=== PATIENT | male | born 1955 | race Caucasian/White ===

== ENCOUNTER 2017-10-17 10:53 | Emergency (ER) | payer BC, OTHER ==
[~2017-10-17] VITALS: Ht 175.3 cm; Wt 132.9 kg
[2017-10-17 10:55] VITALS: TEMP 36.8; Ht 175.3 cm; Wt 132.9 kg
[2017-10-17] MEDS ORDERED: RXC/5 PO (11:37)
[2017-10-17] MEDS ORDERED: TAMS0.4C38 PO (11:37)
[2017-10-17] MEDS ORDERED: GLUC1CAP35 PO (11:37)
[2017-10-17] MEDS ORDERED: FINA5TAB PO (11:37)
[2017-10-17] MEDS ORDERED: GLC/500 PO (11:37)
[2017-10-17] MEDS ORDERED: ONDA4TAB46 PO (11:37)
[2017-10-17] MEDS ORDERED: ASPI325T45 PO (11:37)
[2017-10-17] MEDS ORDERED: MoRPHine SULFATE 10 MG/ML CARP/VIAL IV STA ×2 (11:44→14:30)
[2017-10-17] MEDS ORDERED: KETOROLAC TROMETHAMINE 30 MG/ML VIAL IV STA (11:44)
[2017-10-17] MEDS ORDERED: ONDANSETRON INJ 2 MG/ML 2 ML VIAL IV STA (11:44)
[2017-10-17 11:55] LABS: BASO % 0.1 %; BASO ABS # 0.01 K/uL (0-0.2); COMPLETE YES; EOS % 0.8 %; HEMATOCRIT 43.9 % (42-52); IG% 0.4 %; LYMPH % 10.9 %; LYMPH ABS # 1.06 K/uL (1.2-3.4); MEAN CELL VOLUME 95.6 fL (80-100); MEAN CORPUSCULAR HEMOGLOBIN 32.2 pg (25-34); MEAN CORPUSCULAR HGB CONC 33.7 g/dl (32-36); MEAN PLATELET VOLUME 10.4 fL (7.4-10.4); MONO % 11.8 %; PLATELET COUNT 156 K/uL (130-400); RED BLOOD COUNT 4.59 M/uL (4.7-6.1)
[2017-10-17 12:02] LABS: BUN/CREATININE RATIO 12.7 (10-20); CALCIUM 8.3 mg/dl (8.5-10.1); CREATININE 1.95 mg/dl (0.60-1.40); POTASSIUM 4.3 mmol/L (3.5-5.1)
--- NOTE | 2017-10-17 12:44 | DIAGNOSTIC IMAGING REPORT ---
CT OF THE ABDOMEN AND PELVIS WITHOUT CONTRAST, STONE PROTOCOL CLINICAL HISTORY: Bilateral kidney stones. Nausea and vomiting. COMPARISON STUDY: None. TECHNIQUE: Helical axial images of the abdomen and pelvis were obtained without IV or oral contrast according to renal stone protocol. A dose lowering technique was utilized adhering to the principles of ALARA. FINDINGS: Visualized portions of the lower chest demonstrate trace bilateral pleural effusions. There are associated pleural calcifications. The findings may be chronic. A 7 mm x 6 mm left ureteropelvic junction calculus results in moderate left hydronephrosis. No additional ureteral calculi are identified. There are multiple bilateral renal calculi, including a 1 cm calculus within the lower pole of the left kidney. Calcification along the medial inferior cortex of the right kidney is noted. Evaluation of the remainder of the abdomen and pelvis is suboptimal on this unenhanced exam. There is no biliary ductal dilatation status post cholecystectomy. Unenhanced images of the spleen, adrenal glands and pancreas are normal. There is no evidence for a bowel obstruction. Prostate is moderately enlarged. No lymphadenopathy is present. There is mild left perinephric infiltration. No suspicious osseous lesions are present. There is a probable enchondroma within the intertrochanteric portion of the left femur. IMPRESSION: 1. 7 mm x 6 mm left ureteropelvic junction calculus which results in moderate left hydronephrosis. 2. Bilateral nephrolithiasis. 3. Moderate enlargement of the prostate. Electronically signed by: Vikas Hussein M.D. 10/17/2017 12:42 PM Dictated Date/Time: 10/17/2017 12:33 PM
[2017-10-17 13:51] LABS: URINE APPEARANCE CLEAR (CLEAR); URINE BILIRUBIN NEG (NEG); URINE COLOR YELLOW; URINE EPITHELIAL CELL AUTO 0-5 /lpf (0-5); URINE NITRITE NEG (NEG); URINE SPECIFIC GRAVITY 1.016 (1.000-1.030); UROBILINOGEN NEG (NEG); ZZUR CULT IF INDIC CLEAN CATCH NO
[2017-10-17 13:54] LABS: MANUAL MICROSCOPIC REQUIRED? NO; REVIEW REQ? NO
[2017-10-17] MEDS ORDERED: TRAM-453 PO (14:34)
[2017-10-17] MEDS ORDERED: OXYC1TAB3 PO (14:34)
--- NOTE | 2017-10-17 14:36 | EMERGENCY ROOM VISIT NOTE ---
History Report prepared by [place]: Ady Patten Under the Supervision of: Dr. Mike Oh M.D. First contact with patient: 11:15 Chief Complaint: KIDNEY STONE Stated Complaint: KIDNEY STONE History of Present Illness The patient is a 62 year old white male with a past medical history of enlarged prostate, diabetes who presents to the ED with a cc of constant bilateral flank pain beginning this week. Pain radiates to abdomen, groin and testicles. Positive nausea, vomiting. Negative fevers, chills. He was seen in the [facility] this week and was was negative. He was seen a second time in [facility] for his symptoms, and had another CT which showed bilateral kidney stones. EMR reviewed. Patient's CT Abdomen & Pelvis showed a 6 mm left UPJ stone with mild hydronephrosis. Source of History: patient Onset: This week Position: other (bilateral flank) Timing: constant Associated Symptoms: + nausea, + vomiting, + abdominal pain, No fevers, No chills Note: Additional symptoms: pain radiating into groin and testicles. Review of Systems See HPI for pertinent positives and negatives. A total of ten systems were reviewed and were otherwise negative. Past Medical & Surgical Medical Problems: (1) Diabetes (2) Enlarged prostate Family History No pertinent family history stated. Social History Smoking Status: Former Smoker Marital Status: Current/Historical Medications Scheduled Aspirin (Aspirin), 325 MG PO DAILY Finasteride (Proscar), 5 MG PO DAILY Dgfjtwumwzp-Bmmuukrpfhj-Ifx C- (Glucosamine Chondroitin), 1 CAP PO DAILY Metformin Hcl (Glucophage), 500 MG PO BID Tamsulosin Hcl (Flomax), 0.8 MG PO DAILY Tramadol Hcl (Ultram), 50 MG PO Q8H Scheduled PRN Ondansetron Hcl (Zofran), 4 MG PO Q4 PRN for Nausea Oxycodone HCl (Oxycodone HCl), 5 MG PO Q6 PRN for Pain Oxycodone Immediate Rel Tab (Roxicodone Ir), 5 MG PO Q6H PRN for Pain Allergies Coded Allergies: No Known Allergies (Unverified , 10/17/17) Physical Exam Vital Signs Date Time Temp Pulse Resp B/P (MAP) Pulse Ox O2 Delivery O2 Flow Rate FiO2 10/17/17 15:22 58 16 155/88 97 10/17/17 13:22 54 20 132/85 94 Room Air 11/24/17 10:55 36.8 72 16 191/85 96 Room Air Physical Exam GENERAL: Awake, alert, well-appearing, NAD HENT: Normocephalic, atraumatic. EYES: Normal conjunctiva. Sclera non-icteric. NECK: Supple. No nuchal rigidity. FROM. RESPIRATORY: CTAB, no rhonchi, wheezing, crackles CARDIAC: RRR, no MRG ABDOMEN: Obese, soft, ND, BS+. Left CVA TTP. : descended testes, no penile/testicular pain, no scrotal swelling MSK: No chest wall TTP, no LE edema NEURO: GCS 15, CN 2-12 intact, moves all 4s on command SKIN: No rash or jaundice noted. Medical Decision & Procedures ER Provider Diagnostic Interpretation: Radiology results as stated below per my review and radiologist interpretation: CT OF THE ABDOMEN AND PELVIS WITHOUT CONTRAST, STONE PROTOCOL FINDINGS: Visualized portions of the lower chest demonstrate trace bilateral pleural effusions. There are associated pleural calcifications. The findings may be chronic. A 7 mm x 6 mm left ureteropelvic junction calculus results in moderate left hydronephrosis. No additional ureteral calculi are identified. There are multiple bilateral renal calculi, including a 1 cm calculus within the lower pole of the left kidney. Calcification along the medial inferior cortex of the right kidney is noted. Evaluation of the remainder of the abdomen and pelvis is suboptimal on this unenhanced exam. There is no biliary ductal dilatation status post cholecystectomy. Unenhanced images of the spleen, adrenal glands and pancreas are normal. There is no evidence for a bowel obstruction. Prostate is moderately enlarged. No lymphadenopathy is present. There is mild left perinephric infiltration. No suspicious osseous lesions are present. There is a probable enchondroma within the intertrochanteric portion of the left femur. IMPRESSION: 1. 7 mm x 6 mm left ureteropelvic junction calculus which results in moderate left hydronephrosis. 2. Bilateral nephrolithiasis. 3. Moderate enlargement of the prostate. Electronically signed by: Vikas Hussein M.D. 10/17/2017 12:42 PM Laboratory Results 10/17/17 11:23 Red Blood Count 4.59, Mean Corpuscular Volume 95.6, Mean Corpuscular Hemoglobin 32.2, Mean Corpuscular Hemoglobin Concent 33.7, Mean Platelet Volume 10.4, Neutrophils (%) (Auto) 76.0, Lymphocytes (%) (Auto) 10.9, Monocytes (%) (Auto) 11.8, Eosinophils (%) (Auto) 0.8, Basophils (%) (Auto) 0.1, Neutrophils # (Auto ) 7.37, Lymphocytes # (Auto) 1.06, Monocytes # (Auto) 1.14, Eosinophils # (Auto ) 0.08, Basophils # (Auto) 0.01 10/17/17 11:23 Test 10/17/17 11:23 10/17/17 13:30 White Blood Count 9.70 K/uL (4.8-10.8) Red Blood Count 4.59 M/uL (4.7-6.1) Hemoglobin 14.8 g/dL (14.0-18.0) Hematocrit 43.9 % (42-52) Mean Corpuscular Volume 95.6 fL (80-100) Mean Corpuscular Hemoglobin 32.2 pg (25-34) Mean Corpuscular Hemoglobin Concent 33.7 g/dl (32-36) Platelet Count 156 K/uL (130-400) Mean Platelet Volume 10.4 fL (7.4-10.4) Neutrophils (%) (Auto) 76.0 % Lymphocytes (%) (Auto) 10.9 % Monocytes (%) (Auto) 11.8 % Eosinophils (%) (Auto) 0.8 % Basophils (%) (Auto) 0.1 % Neutrophils # (Auto) 7.37 K/uL (1.4-6.5) Lymphocytes # (Auto) 1.06 K/uL (1.2-3.4) Monocytes # (Auto) 1.14 K/uL (0.11-0.59) Eosinophils # (Auto) 0.08 K/uL (0-0.5) Basophils # (Auto) 0.01 K/uL (0-0.2) RDW Standard Deviation 46.3 fL (36.4-46.3) RDW Coefficient of Variation 13.4 % (11.5-14.5) Immature Granulocyte % (Auto) 0.4 % Immature Granulocyte # (Auto) 0.04 K/uL (0.00-0.02) Anion Gap 5.0 mmol/L (3-11) Est Creatinine Clear Calc Drug Dose 51.7 ml/min Estimated GFR () 40.9 Estimated GFR (Non- 35.3 BUN/Creatinine Ratio 12.7 (10-20) Calcium Level 8.3 mg/dl (8.5-10.1) Total Bilirubin 0.8 mg/dl (0.2-1) Direct Bilirubin 0.2 mg/dl (0-0.2) Aspartate Amino Transf (AST/SGOT) 17 U/L (15-37) Alanine Aminotransferase (ALT/SGPT) 39 U/L (12-78) Alkaline Phosphatase 88 U/L (45-117) Total Protein 6.5 gm/dl (6.4-8.2) Albumin 3.1 gm/dl (3.4-5.0) Lipase 84 U/L (73-393) Urine Color YELLOW Urine Appearance CLEAR (CLEAR) Urine pH 5.0 (4.5-7.5) Urine Specific [place] 1.016 (1.000-1.030) Urine Protein NEG (NEG) Urine Glucose (UA) NEG (NEG) Urine Ketones NEG (NEG) Urine Occult Blood TRACE (NEG) Urine Nitrite NEG (NEG) Urine Bilirubin NEG (NEG) Urine Urobilinogen NEG (NEG) Urine Leukocyte Esterase NEG (NEG) Urine WBC (Auto) 0 /hpf (0-5) Urine RBC (Auto) 0-4 /hpf (0-4) Urine Hyaline Casts (Auto) 0 /lpf (0-5) Urine Epithelial Cells (Auto) 0-5 /lpf (0-5) Urine Bacteria (Auto) NEG (NEG) Laboratory results reviewed by me Medications Administered Medications (Trade) Dose Ordered Sig/Chantelle Route Start Time Stop Time Status Last Admin Dose Admin Ondansetron HCl (Zofran Inj) 4 mg NOW STAT IV 10/17/17 11:44 10/17/17 11:47 DC 10/17/17 12:06 4 MG Ketorolac Tromethamine (Toradol Inj) 30 mg NOW STAT IV 10/17/17 11:44 10/17/17 11:47 DC 10/17/17 12:06 30 MG Morphine Sulfate (MoRPHine SULFATE INJ) 8 mg NOW STAT IV 10/17/17 11:44 10/17/17 11:47 DC 10/17/17 12:06 8 MG ED Course 1213: The patient was evaluated in room C11B. A complete history and physical exam was performed. 1412: I reevaluated the patient. Discussed results and discharge instructions: he verbalized understanding and agreement. Case management will set the patient with urology follow up. The patient is ready for discharge. Medical Decision The patient is a 62 year old white male with a past medical history of enlarged prostate, diabetes who presents to the ED with a cc of constant bilateral flank pain. Differential diagnosis includes etiologies such as renal colic, appendicitis, diverticulitis, mesenteric ischemia, aortic pathology, infections , inflammatory bowel disease, PUD, biliary pathology, UTI, as well as others were entertained. Patient was seen and evaluated at the bedside. Patient does have an no recent history of kidney stones. This is third visit within the last week or so patient was told and confirmed on his CT report shows that he is a 6 mm stone located in the left UPJ. Patient exam does have some left-sided CVA tenderness palpation. Patient did have blood work that was completed along with CT noncontrast renal stone. Patient was also given pain medication. Patient does have an elevated creatinine at 1.95 however there is no prior to compare to some unknown if this is a TIA versus EKG. Patient does have a known history of diabetes and this may be related to diabetic nephropathy. Patient does not have an elevated white blood cell count. Patient is afebrile and his vital signs are otherwise stable some mild hypertension. I did speak with the on- call urologist who stated they would likely continue conservative management however they would like to see him in clinic next week. He did state if his pain is not controlled he could stay for pain management and further evaluation by urology as an inpatient. Upon reevaluation of the patient I did discuss treatment options and the patient elected to go home as his pain improved. Patient is already on finasteride Flomax for BPH that was not initiated. Patient was given additional pain medications for home and told to continue adequate and liberal fluid hydration. Patient was very well-appearing upon his reassessment was deemed suitable for outpatient follow-up and discharge. I did speak with the porter sample case who help arrange an outpatient appointment for him. Patient was given strict follow-up, discharge, and return precautions. All questions were answered. Patient was deemed suitable for outpatient follow- up at this time. Patient agreed with the plan of care and was safely discharged home. Medication Reconcilliation Current Medication List: was personally reviewed by me Blood Pressure Screening Patient's blood pressure: Elevated blood pressure Blood pressure disposition: Referred to PCP Consults Time Called: 1335 Consulting Physician: Dr. Lee -Urology Returned Call: [phone] Discussed the patient's case. Dr. Sifuentes feels that the patient would be safe for discharge with urology follow up, as long as his pain can be controlled. Impression Primary Impression: Renal colic Additional Impressions: Nephrolithiasis Ureterolithiasis Scribe Attestation The scribe's documentation has been prepared under my direction and personally reviewed by me in its entirety. I confirm that the note above accurately reflects all work, treatment, procedures, and medical decision making performed by me. Departure Information Dispostion Home / Self-Care Prescriptions Oxycodone Immediate Rel Tab (ROXICODONE IR) 5 Mg Tab 5 MG PO Q6H Y for Pain, #15 TAB Prov: Mike Oh M.D. 10/17/17 Tramadol Hcl (ULTRAM) 50 Mg Tab 50 MG PO Q8H, #15 TAB PRN PAIN Prov: Mike Oh M.D. 10/17/17 Referrals Corey Gill D.O. (PCP) Gil Sifuentes D.O. Patient Instructions Kidney Stones, Kidney Stones Eval, Kidney Stones Expectant Therapy, Kidney Stones Prevent, My [facility] Additional Instructions Please return to the emergency department if you have worsening or recurrent symptoms not amenable to at-home treatment. Please call for a follow-up appointment with her primary care physician. Please take your medications as prescribed. If you have other concerns and/or complaints please feel free to also call your primary care physician's office or return the ED for further evaluation, management, and treatment. You may take 200 mg Ibuprofen every 6 hours as needed for pain with food for no more than 2 consecutive days. You may take tylenol 1000 mg every 6 hours as needed for pain. You may take motrin and tylenol separately or at the same time. Take your medications as prescribed. You have been examined and treated today on an emergency basis only. This is not a substitute for, or an effort to provide, complete comprehensive medical care. It is impossible to recognize and treat all injuries or illnesses in a single emergency department visit. It is therefore important that you follow up closely with [facility], your PCP, and/or your specialist(s). Call as soon as possible for an appointment. Thank you for your time and consideration. I look forward to speaking with you again soon. Please don't hesitate to call us if you have any questions. Problem Qualifiers
[2017-10-17 15:22] VITALS: BP 155/88; PULSE 58; O2SAT 97
== END 2017-10-17 15:29 | disposition home or self-care (01) ==
LOC: C.EDB 10:55 → C.EDC 15:29
DX: N23 Unspecified renal colic (principal); N20.0 Calculus of kidney; N20.1 Calculus of ureter; E11.9 Type 2 diabetes mellitus without complications; N40.0 Benign prostatic hyperplasia without lower urinary tract symptoms; Z87.891 Personal history of nicotine dependence; Z79.82 Long term (current) use of aspirin; Z79.899 Other long term (current) drug therapy

== ENCOUNTER → 2017-10-22 | Outpatient (CLI) | payer BC ==
[~2017-10-22] MED LIST: ASPI325T45 PO; ASPI81TA28 PO; FINA5TAB PO; GLC/500 PO; GLUC1CAP35 PO; ONDA4TAB46 PO; OXYC1TAB3 PO; RXC/5 PO; TAMS0.4C38 PO; TRAM-10 PO; TRAM-453 PO
[2017-10-22 13:23] LABS: BASO % 0.1 %; BASO ABS # 0.01 K/uL (0-0.2); COMPLETE YES; EOS % 2.2 %; HEMATOCRIT 44.2 % (42-52); IG% 0.5 %; LYMPH % 16.2 %; LYMPH ABS # 1.55 K/uL (1.2-3.4); MEAN CELL VOLUME 96.5 fL (80-100); MEAN CORPUSCULAR HEMOGLOBIN 32.3 pg (25-34); MEAN CORPUSCULAR HGB CONC 33.5 g/dl (32-36); MEAN PLATELET VOLUME 10.2 fL (7.4-10.4); MONO % 10.8 %; NEUT % 70.2 %; PLATELET COUNT 159 K/uL (130-400); RED BLOOD COUNT 4.58 M/uL (4.7-6.1); WHITE BLOOD COUNT 9.57 K/uL (4.8-10.8)
--- NOTE | 2017-10-22 13:55 | DIAGNOSTIC IMAGING REPORT ---
TWO VIEW CHEST CLINICAL HISTORY: Nephrolithiasis. Ureteral stent. Preoperative examination. FINDINGS: PA and lateral chest radiographs are obtained. No prior studies are available for comparison at the time of dictation. The cardiomediastinal silhouette is unremarkable. The lungs and pleural spaces are clear. There is no pneumothorax. The bony thorax appears intact. Degenerative change is seen throughout the thoracic spine. IMPRESSION: No active disease in the chest. Electronically signed by: Serafin Vaca M.D. 10/22/2017 1:54 PM Dictated Date/Time: 10/22/2017 1:53 PM
[2017-10-22 13:58] LABS: BLOOD UREA NITROGEN 30 mg/dl (7-18); BUN/CREATININE RATIO 16.9 (10-20); CALCIUM 9.5 mg/dl (8.5-10.1); CARBON DIOXIDE 24 mmol/L (21-32); CHLORIDE 104 mmol/L (98-107); CREATININE 1.78 mg/dl (0.60-1.40); GLUCOSE 100 mg/dl (70-99); POTASSIUM 4.6 mmol/L (3.5-5.1); SODIUM 137 mmol/L (136-145)
== END | disposition home or self-care (01) ==
LOC: C.LAB 12:06
PROVIDERS: ATTEND Urology
DX: N20.0 Calculus of kidney (principal); N20.1 Calculus of ureter

== ENCOUNTER → 2017-10-22 | Outpatient (CLI) | payer BC ==
--- NOTE | 2017-10-22 09:24 | DIAGNOSTIC IMAGING REPORT ---
KUB CLINICAL HISTORY: 62 years-old Male presenting with N40.1 Benign prostatic hyperplasia with urinary [id number]. TECHNIQUE: Single supine view of the abdomen was obtained. COMPARISON: CT from 10/17/2017. FINDINGS: Cholecystectomy clips. Moderate stool burden throughout the colon. Posterior small bowel gas, nonspecific. No gross pneumoperitoneum. Bilateral nephrolithiasis. Parenchymal calcification at the medial lower pole the right kidney. Calcification projects over the region of the proximal left ureter as on prior CT at the inferior lateral aspect of the L2 transverse process. Bilateral pelvic phleboliths unchanged in distribution from prior CT. Degenerative change of the lower lumbar spine. IMPRESSION: 1. Bilateral nephrolithiasis with unchanged position of the proximal left ureteral calculus. 2. Moderate stool burden. Electronically signed by: Candido Dhaliwal M.D. 10/22/2017 9:22 AM Dictated Date/Time: 10/22/2017 9:20 AM
== END | disposition home or self-care (01) ==
LOC: C.RAD 08:48
PROVIDERS: ATTEND Nurse Practitioner Adult Health
DX: N20.0 Calculus of kidney (principal); N40.1 Benign prostatic hyperplasia with lower urinary tract symptoms

== ENCOUNTER 2017-10-28 11:50 | Day surgery (SDC) | payer BC ==
[2017-10-23 10:16] VITALS: BMI 41.0
[~2017-10-28] VITALS: Ht 177.8 cm; Wt 129.5 kg
[~2017-10-28 11:50] MED LIST changes: -ASPI325T45 PO; +CEFAZOLIN 3000MG IV PUSH 15 ML IV SCH; +LACTATED RINGER'S 1000ML 1,000 ML IV SCH; -OXYC1TAB3 PO; -RXC/5 PO; -TRAM-453 PO
[2017-10-28 12:52] VITALS: BP 183/92; PULSE 66; TEMP 36.6; O2SAT 95; Ht 177.8 cm; Wt 129.5 kg
--- NOTE | 2017-10-28 13:16 | History & Physical Bridge Note ---
H&P Re-Evaluation Bridge Note: I have examined the patient, reviewed the History & Physical and in the interval since the performance of the History & Physical I have noted the following changes of clinical significance: No changes noted
[2017-10-28] MEDS ORDERED: PHEN-775 PO (13:17)
[2017-10-28] MEDS ORDERED: CEPH500C2 PO (13:17)
--- NOTE | 2017-10-28 13:19 | Discharge Instructions ---
Discharge Instructions Date of Service Oct 28, 2017. Admission Reason for Admission: STONE Discharge Discharge Diagnosis / Problem: Left Stone Discharge Goals Goal(s): Decrease discomfort, Improve function Activity Recommendations Activity Limitations: resume your previous activity Lifting Limitations: no more than 10 pounds, gradually increase as tolerated Exercise/Sports Limitations: as tolerated Shower/Bathe: no limitations . Instructions / Follow-Up Instructions / Follow-Up May have blood in urine. May have pelvic discomfort or pain when voiding. Current Hospital Diet Patient's current hospital diet: Reg Discharge Diet Recommended Diet: Regular Diet Procedures Procedures Performed: Cystoscopy, Left Retrograde, ureteroscopy, laser lithotripsy, Basket extraction, Stent Pending Studies Studies pending at discharge: no Medical Emergencies . Who to Call and When: Medical Emergencies: If at any time you feel your situation is an emergency, please call 911 immediately. . Non-Emergent Contact Non-Emergency issues call your: Primary Care Provider, Urologist Call Non-Emergent contact if: you have a fever, temperature is above 101, temperature is above 101.5, your pain is not controlled, your pain is worsening . . "Provider Documentation" section prepared by Gil Sifuentes,. . VTE Core Measure Inpt VTE Proph given/why not?: Danny Vargas, REX's
[2017-10-28] MEDS ORDERED: OXYCODONE/ACETAMINOPHEN 7.5-325 TAB PO PRN (13:30)
[2017-10-28] MEDS ORDERED: FENTANYL CITRATE INJ 50 MCG/1 ML 2 ML VIAL ONE ×2 (13:32→15:24)
[2017-10-28] MEDS ORDERED: LIDOCAINE HCL 2% 2 ML VIAL (20MG/ML) ONE (13:32)
[2017-10-28] MEDS ORDERED: ONDANSETRON INJ 2 MG/ML 2 ML VIAL ONE (13:32)
[2017-10-28] MEDS ORDERED: DEXAMETHASONE SOD INJ 4 MG/ML VIAL ONE (13:32)
[2017-10-28] MEDS ORDERED: PROPOFOL IV EMULSION 10 MG/ML 20 ML VIAL IV ONE (13:32)
[2017-10-28] MEDS ORDERED: LABETALOL HCL IV 5 MG/ML 20ML IV PRN (13:45)
[2017-10-28] MEDS ORDERED: ONDANSETRON INJ 2 MG/ML 2 ML VIAL IV PRN (13:45)
[2017-10-28] MEDS ORDERED: MEPERIDINE HCL 25 MG/ML CARP IV PRN (13:45)
[2017-10-28] MEDS ORDERED: EpHEDrine SULFATE INJ 50 MG/ML AMP IV PRN (13:45)
[2017-10-28] MEDS ORDERED: ATROPINE SULFATE 0.1 MG/ML 5ML SYR IV PRN (13:45)
[2017-10-28] MEDS ORDERED: HYDROmorphone INJ 1 MG/ML SYR IV PRN (13:45)
[2017-10-28] MEDS ORDERED: FENTANYL CITRATE INJ 50 MCG/1 ML 2 ML VIAL IV PRN (13:45)
[2017-10-28] MEDS ORDERED: PHENYLEPHRINE 100MCG/ML 5ML SYR ONE (14:27)
[2017-10-28] MEDS ORDERED: CONRAY 30% 150ML BOTTLE ONE (14:55)
[2017-10-28] MEDS ORDERED: BELLADONNA/OPIUM SUPP 60 MG SUPP PR ONE ×2 (16:01→16:13)
--- NOTE | 2017-10-28 16:19 | DIAGNOSTIC IMAGING REPORT ---
RETROGRADE INCLUDES KUB CLINICAL HISTORY: LEFT LASER LITHOTRIPSY AND STENT PLACEMENT TECHNIQUE: Image intensifier COMPARISON STUDY: None FINDINGS: Image intensifier was used for laser lithotripsy and stent placement. Final 2 images demonstrate good stent placement. 1.1 minutes of fluoroscopy time were utilized IMPRESSION: Left ureteral stent placement and lithotripsy. The above report was generated using voice recognition software. It may contain grammatical, syntax or spelling errors. Electronically signed by: Ravi Boyd M.D. 10/28/2017 4:17 PM Dictated Date/Time: 10/28/2017 4:16 PM
[2017-10-28] MEDS ORDERED: CIPR-255 PO (16:22)
--- NOTE | 2017-10-28 16:22 | [facility] Operative Report ---
Operative Report Operative Date Oct 28, 2017. Pre-Operative Diagnosis Left Stone UPJ and kidney Post-Operative Diagnosis Same, with large volume debris and poor visualization Procedure(s) Performed Cystoscopy, Left Retrograde, ureteroscopy, laser lithotripsy, Basket extraction, Stent Surgeon Bear Estimated Blood Loss 5 cc Findings Large stones in left kidney and UPJ. UPJ completely obstructed with impacted stone. Upon destruction of stone, large discharge of debris and stone matrix from renal pelvis. Large pelvis stones covered in stone matrix material. Visualization extremely limited due to large volume. Specimens Stone/Debris left kidney Drains 6x26 Left Stent Anesthesia General Complication(s) None Disposition Recovery Room / PACU Indications Obstructing stone with pain. Risks and benefits discussed and will proceed. Description of Procedure Patient was consented and brought back to the operating room. Patient was placed under anesthesia in the supine position. Patient was transferred to dorsal lithotomy position. Patient was prepped and draped in the regular sterile fashion. A time out was completed. A 30degree Cystoscope was placed into the bladder and the entire bladder was examined. The UO's were identified. The left was cannulized with a catheter and a retrograde pyelogram was completed and A wire was then placed. With the wire in place, a second safety wire was placed. A ureteral access sheath was placed and the flexible ureterscopy was selected. The scope was taken to the UPJ where a large stone was encountered. It was pulverized to dust and small fragments. Upon fracturing of the stone, a large amount of cloudy debris filled urine was received. This debris filled the renal pelvis and surrounded the pelvis stones. Visualization was extremly limited. A larger fragment of this stone/ debris was grasped and removed. The renal pelvis was examined but due to matrix material limiting visualization it was difficult to identify stones. Irrigation of material improved visualization slightly and it appeared the large stones were surrounded in the material. At this point due to inability to completely visualize with scope and possible bacterial release from stone matrix, further stone treatment was ended. The scope removed with the safety wire remaining in place. The wire was loaded into the cystoscope and a 6 x [26 ] Double J stent was placed. It was confirmed with fluoroscopy. A large amount of cloudy debris filled urine was recievd into the bladder. With the stent in place, the bladder was emptied. Of note, the patient has an extremely large median lobe with trilobar enlargement of the prostate. The scope was removed. The patient was cleaned, aroused from anesthesia, and transferred to the pacu in stable condition having tolerated the procedure well with no complications. I was present and participated in all aspects of the procedure. The patient will be monitored in the PACU until transferred. I attest to the content of the Intraoperative Record and any orders documented therein. Any exceptions are noted below.
--- NOTE | 2017-10-28 16:44 | Anesthesiology Progress Note ---
Anesthesia Post Op Note Date & Time Oct 28, 2017 at 16:44 Vital Signs Pain Intensity: 0 Vital Signs Past 12 Hours Date Time Temp Pulse Resp B/P (MAP) Pulse Ox O2 Delivery O2 Flow Rate FiO2 10/28/17 16:40 61 14 168/71 93 Room Air Oxymask 10/28/17 16:30 62 14 165/81 98 Oxymask 10 10/28/17 16:20 66 14 144/75 97 Oxymask 10 10/28/17 16:11 36.4 73 19 126/73 95 Oxymask 10 10/28/17 12:52 36.6 66 22 183/92 (122) 95 Room Air Notes Mental Status: alert / awake / arousable, participated in evaluation Pt Amnestic to Procedure: Yes Nausea / Vomiting: adequately controlled Pain: adequately controlled Airway Patency, RR, SpO2: stable & adequate BP & HR: stable & adequate Hydration State: stable & adequate Anesthetic Complications: no major complications apparent
[2017-10-28 16:57] VITALS: BP 212/94; PULSE 57; TEMP 37.1; O2SAT 93
[2017-10-28 17:27] VITALS: BP 200/94; PULSE 56; O2SAT 95
[2017-10-28 17:57] VITALS: BP 210/96; PULSE 56; O2SAT 95
[2017-10-28] MEDS ORDERED: HydrALAZINE HCL 20 MG/ML VIAL ONE (18:07)
[2017-10-28] MEDS ORDERED: NURSING VERBAL MED ORDER ONE (18:15)
[2017-10-28 18:27] VITALS: BP 178/82; PULSE 70; TEMP 37; O2SAT 95
== END 2017-10-28 19:08 | disposition home or self-care (01) ==
LOC: C.ACU 11:50
PROVIDERS: ATTEND Urology
DX: N20.2 Calculus of kidney with calculus of ureter (principal); N40.1 Benign prostatic hyperplasia with lower urinary tract symptoms; N13.8 Other obstructive and reflux uropathy; E11.9 Type 2 diabetes mellitus without complications; Z79.82 Long term (current) use of aspirin; Z79.84 Long term (current) use of oral hypoglycemic drugs; Z79.899 Other long term (current) drug therapy

== ENCOUNTER 2017-11-13 07:03 | Day surgery (SDC) | payer BC ==
[2017-11-06 10:04] VITALS: BMI 41.0
[~2017-11-13] VITALS: Ht 177.8 cm; Wt 129.5 kg
[~2017-11-13 07:03] MED LIST changes: +CIPR-255 PO; -ONDA4TAB46 PO; +PHEN-876 PO
[2017-11-13] MEDS ORDERED: PROPOFOL IV EMULSION 10 MG/ML 20 ML VIAL IV ONE (07:30)
[2017-11-13] MEDS ORDERED: DEXAMETHASONE SOD INJ 4 MG/ML VIAL ONE (07:30)
[2017-11-13] MEDS ORDERED: LIDOCAINE HCL 2% 2 ML VIAL (20MG/ML) ONE (07:30)
[2017-11-13] MEDS ORDERED: ONDANSETRON INJ 2 MG/ML 2 ML VIAL ONE (07:30)
[2017-11-13] MEDS ORDERED: FENTANYL CITRATE INJ 50 MCG/1 ML 2 ML VIAL ONE ×2 (07:38→09:56)
[2017-11-13] MEDS ORDERED: MIDAZOLAM HCL 1 MG/ML 2ML VIAL ONE (07:38)
[2017-11-13] MEDS ORDERED: DTR/5 PO (07:55)
[2017-11-13] MEDS ORDERED: ACET-1311 PO (07:55)
[2017-11-13] MEDS ORDERED: CYAN10005 PO (07:55)
[2017-11-13 07:57] VITALS: BP 149/83; PULSE 58; TEMP 36.9; O2SAT 97; Ht 177.8 cm; Wt 129.5 kg
[2017-11-13] MEDS ORDERED: PHEN-775 PO (08:19)
[2017-11-13] MEDS ORDERED: CEPH500C PO (08:19)
[2017-11-13] MEDS ORDERED: TRAM-10 PO (08:19)
--- NOTE | 2017-11-13 08:21 | Discharge Instructions ---
Discharge Instructions Date of Service Nov 13, 2017. Admission Reason for Admission: STONE Discharge Discharge Diagnosis / Problem: Stone Discharge Goals Goal(s): Decrease discomfort, Improve function Activity Recommendations Activity Limitations: resume your previous activity Lifting Limitations: no more than 25 pounds Exercise/Sports Limitations: as tolerated Shower/Bathe: no limitations . Instructions / Follow-Up Instructions / Follow-Up May have blood in urine or pain with voiding. Keep follow up in 1 week for stent removal Current Hospital Diet Patient's current hospital diet: REg Discharge Diet Recommended Diet: Regular Diet Procedures Procedures Performed: Cysto, Left Ureteroscopy Pending Studies Studies pending at discharge: no Medical Emergencies . Who to Call and When: Medical Emergencies: If at any time you feel your situation is an emergency, please call 911 immediately. . Non-Emergent Contact Non-Emergency issues call your: Primary Care Provider, Urologist Call Non-Emergent contact if: you have a fever, temperature is above 101, temperature is above 101.5, your pain is not controlled, your pain is unusual for you . . "Provider Documentation" section prepared by Gil Sifuentes,. . VTE Core Measure Inpt VTE Proph given/why not?: SCD's
[2017-11-13] MEDS ORDERED: CONRAY 30% 150ML BOTTLE ONE (08:25)
[2017-11-13] MEDS ORDERED: OXYCODONE/ACETAMINOPHEN 7.5-325 TAB PO PRN (08:30)
--- NOTE | 2017-11-13 10:12 | DIAGNOSTIC IMAGING REPORT ---
RETROGRADE INCLUDES KUB HISTORY: 62 years-old Male LEFT LITHOTRIPSY/STENT PLACEMENT status post left-sided left ventricular see with stent placement COMPARISON: Retrograde cystourethrogram 10/28/2017, CT 10/17/2017 TECHNIQUE: 4 spot fluoroscopic images of the left abdomen and pelvis were obtained utilizing 78.3 seconds fluoroscopy time. FINDINGS: First image demonstrates a left ureteroscope and guidewire in place with cannulation of a superior pole calyx. There is contrast opacification of the left renal collecting system with possible filling defects noted within superior pole calyces. Subsequent images demonstrate deployment of a left ureteral stent which appears to be in satisfactory position. No definite calculi seen along the course of the left ureter. IMPRESSION: Status post placement of a left ureteral stent which appears to be in satisfactory positioning. The above report was generated using voice recognition software. It may contain grammatical, syntax or spelling errors. Electronically signed by: Antwan Kong M.D. 11/13/2017 10:11 AM Dictated Date/Time: 11/13/2017 10:08 AM
--- NOTE | 2017-11-13 10:19 | [facility] Operative Report ---
Operative Report Operative Date Nov 13, 2017. Pre-Operative Diagnosis Left Stone Post-Operative Diagnosis Same Procedure(s) Performed Cysto, left ureteroscopy, laser lithotripsy, retrograde, stent change, Stone basket extraction. Surgeon Bear Claim Professional Surgeon(s) None Estimated Blood Loss Minimal Findings Left UPJ stone. Specimens Stone Drains 6x26 Left, 20 Fr Catheter. Anesthesia General Complication(s) None Disposition Recovery Room / PACU Indications Large obs stone with stent in place. Patient agreeable and consented. Description of Procedure Patient was consented and brought back to the operating room. Patient was placed under anesthesia in the supine position. Patient was prepped and draped in the regular sterile fashion. A time out was completed. A 30degree Cystoscope was placed into the bladder and the entire bladder was examined. The UO's were identified. The left stent was grasped and partially removed and a wire was placed. With the wire in place, a ureteral access sheath and a second safety wire was placed. The scope was placed into the sheath and taken into the pelvis. The stone was visualized and a laser selected. The stone was obliterated and pulverized to dust and small fragments. Larger fragments were grasped and removed with the basket. The entire pelvis was examined and all stones/fragments treated. At this point, the scope was slowly removed visualizing the entire ureter. No areas of concern were noted. The safety wire was left in place. With the wire in place, a 6 x [26] Double J stent was placed. It was confirmed with fluoroscopy. With the stent in place, the bladder was emptied and assessed. The bladder was filled. The scope was removed and a 20 Fr Catheter was placed with good drainage. The patient was cleaned, aroused from anesthesia , and transferred to the pacu in stable condition having tolerated the procedure well with no complications. I was present and participated in all aspects of the procedure. The patient will be monitored in the PACU until transferred. I attest to the content of the Intraoperative Record and any orders documented therein. Any exceptions are noted below.
[2017-11-13] MEDS ORDERED: BELLADONNA/OPIUM SUPP 60 MG SUPP PR ONE (10:27)
[2017-11-13] MEDS ORDERED: FENTANYL CITRATE INJ 50 MCG/1 ML 2 ML VIAL IV PRN (10:30)
[2017-11-13] MEDS ORDERED: NURSING VERBAL MED ORDER ONE (10:30)
[2017-11-13] MEDS ORDERED: ATROPINE SULFATE 0.1 MG/ML 5ML SYR IV PRN (10:30)
[2017-11-13] MEDS ORDERED: ONDANSETRON INJ 2 MG/ML 2 ML VIAL IV PRN (10:30)
[2017-11-13 11:10] VITALS: BP 185/82; PULSE 64; TEMP 36.3; O2SAT 93
--- NOTE | 2017-11-13 11:30 | Anesthesiology Progress Note ---
Anesthesia Post Op Note Date & Time Nov 13, 2017 at 11:30 Vital Signs Pain Intensity: 0 Vital Signs Past 12 Hours Date Time Temp Pulse Resp B/P (MAP) Pulse Ox O2 Delivery O2 Flow Rate FiO2 11/13/17 11:00 62 16 11/13/17 11:00 63 16 95 11/13/17 10:57 179/83 11/13/17 10:56 36.4 11/13/17 10:55 66 16 96 11/13/17 10:55 65 16 11/13/17 10:54 67 13 11/13/17 10:54 68 13 96 11/13/17 10:52 186/83 11/13/17 10:49 65 14 11/13/17 10:49 66 14 97 11/13/17 10:47 176/81 11/13/17 10:44 66 14 11/13/17 10:44 66 14 94 11/13/17 10:43 72 17 95 11/13/17 10:43 72 17 11/13/17 10:42 180/75 11/13/17 10:38 70 16 11/13/17 10:38 70 16 96 11/13/17 10:37 164/81 11/13/17 10:33 63 18 99 11/13/17 10:33 64 18 11/13/17 10:32 184/90 11/13/17 10:30 74 18 100 11/13/17 10:30 72 18 11/13/17 10:27 191/72 11/13/17 10:25 66 15 11/13/17 10:25 66 15 100 11/13/17 10:22 172/90 11/13/17 10:20 68 16 11/13/17 10:20 69 16 100 11/13/17 10:18 180/77 11/13/17 10:15 36.6 91 17 180/77 98 Oxymask 10 11/13/17 10:15 71 15 98 11/13/17 10:15 69 15 11/13/17 07:57 36.9 58 18 149/83 (105) 97 Room Air Notes Mental Status: alert / awake / arousable, participated in evaluation Pt Amnestic to Procedure: Yes Nausea / Vomiting: adequately controlled Pain: adequately controlled Airway Patency, RR, SpO2: stable & adequate BP & HR: stable & adequate Hydration State: stable & adequate Anesthetic Complications: no major complications apparent
[2017-11-13 11:40] VITALS: BP 115/101; PULSE 88; TEMP 36.5; O2SAT 91
[2017-11-13 12:10] VITALS: BP 166/79; PULSE 81; TEMP 36.7; O2SAT 95
[2018-06-18] MEDS ORDERED: ATOR10TA82 PO (13:12)
[2018-06-18] MEDS ORDERED: NAPR1TAB9 PO (13:12)
[2018-07-08] MEDS ORDERED: CIPR-255 PO ×2 (08:07→08:11)
[2018-07-08] MEDS ORDERED: PHEN95TA14 PO ×2 (08:07→08:11)
== END 2017-11-13 13:00 | disposition home or self-care (01) ==
LOC: C.ACU 07:03
PROVIDERS: ATTEND Urology
DX: N20.1 Calculus of ureter (principal); E11.22 Type 2 diabetes mellitus with diabetic chronic kidney disease; N18.9 Chronic kidney disease, unspecified; E66.9 Obesity, unspecified; Z90.49 Acquired absence of other specified parts of digestive tract; Z90.89 Acquired absence of other organs; F17.200 Nicotine dependence, unspecified, uncomplicated; Z79.899 Other long term (current) drug therapy; Z79.82 Long term (current) use of aspirin; Z83.3 Family history of diabetes mellitus; Z80.3 Family history of malignant neoplasm of breast; Z82.49 Family history of ischemic heart disease and other diseases of the circulatory system

== ENCOUNTER → 2017-11-26 | Outpatient (CLI) | payer BC ==
[~2017-11-26] MED LIST changes: +ACET-1311 PO; +ATOR10TA82 PO; -CEFAZOLIN 3000MG IV PUSH 15 ML IV SCH; +CEFD300C2 PO; +CEPH500C PO; +CYAN10005 PO; +DTR/5 PO; -LACTATED RINGER'S 1000ML 1,000 ML IV SCH; +NAPR1TAB9 PO; +OXYC-57 PO; -PHEN-876 PO; +PHEN95TA14 PO
--- NOTE | 2017-11-26 08:48 | DIAGNOSTIC IMAGING REPORT ---
KUB CLINICAL HISTORY: N20.0 [id number] COMPARISON STUDY: 10/22/2017 FINDINGS: The examination is compromised due to respiratory motion artifact. There is no pathologic bowel dilatation. There are surgical clips the right upper quadrant consistent with a prior cholecystectomy. There are bilateral renal calculi. There is residual left-sided nephroureteral stent. The stone burden on the left appears decreased when compared the preceding study. Irregularity of the left lateral iliac bone, remains unchanged and is likely either posttraumatic or postsurgical. IMPRESSION: 1. Bilateral nephrolithiasis 2. Indwelling left-sided nephroureteral stent. No calculi along the course of the stent are visualized Electronically signed by: Mingo Alvarenga M.D. 11/26/2017 8:47 AM Dictated Date/Time: 11/26/2017 8:45 AM
== END | disposition home or self-care (01) ==
LOC: C.RAD 08:03
PROVIDERS: ATTEND Urology
DX: N20.0 Calculus of kidney (principal)

== ENCOUNTER 2017-11-27 01:03 | Emergency (ER) | payer BC ==
[~2017-11-27] VITALS: Ht 175.3 cm; Wt 106.4 kg
[~2017-11-27 01:03] MED LIST changes: -ASPI81TA28 PO; -ATOR10TA82 PO; -CEFD300C2 PO; -CIPR-255 PO; -NAPR1TAB9 PO; -OXYC-57 PO; -PHEN95TA14 PO
[2017-11-27 01:06] VITALS: Ht 175.3 cm; Wt 106.4 kg
[2017-11-27] MEDS ORDERED: OXYC-57 PO (01:34)
[2017-11-27] MEDS ORDERED: ASPI81TA28 PO (01:34)
[2017-11-27 01:41] VITALS: TEMP 37.9
[2017-11-27 01:45] LABS: BASO % 0.1 %; BASO ABS # 0.01 K/uL (0-0.2); EOS ABS # 0.11 K/uL (0-0.5); HEMATOCRIT 40.5 % (42-52); HEMOGLOBIN 13.9 g/dL (14.0-18.0); IG# 0.05 K/uL (0.00-0.02); LYMPH % 10.7 %; LYMPH ABS # 1.18 K/uL (1.2-3.4); MEAN CELL VOLUME 92.9 fL (80-100); MEAN CORPUSCULAR HEMOGLOBIN 31.9 pg (25-34); MEAN CORPUSCULAR HGB CONC 34.3 g/dl (32-36); MEAN PLATELET VOLUME 9.8 fL (7.4-10.4); MONO % 9.8 %; MONO ABS # 1.08 K/uL (0.11-0.59); NEUT % 77.9 %; NEUT ABS # 8.58 K/uL (1.4-6.5); PLATELET COUNT 160 K/uL (130-400); RED CELL DISTRIBUTION WIDTH CV 12.9 % (11.5-14.5); RED CELL DISTRIBUTION WIDTH SD 43.3 fL (36.4-46.3); WHITE BLOOD COUNT 11.01 K/uL (4.8-10.8)
[2017-11-27] MEDS ORDERED: ACETAMINOPHEN 500 MG TAB PO STA (01:54)
--- NOTE | 2017-11-27 02:01 | EMERGENCY ROOM VISIT NOTE ---
History First contact with patient: :11 Chief Complaint: URINARY SYMPTOMS Stated Complaint: UTI Nursing Triage Summary: fever and malaise since having catheter removed earlier today History of Present Illness The patient is a 62 year old male who presents to the Emergency Room with complaints of a fever. The patient reports that he noticed chills this evening. He took his temperature and it was 101F, although his reports that his temperature "runs low" and normal temperature for him is apparently 97.9F. The patient reports chills and general malaise. He has had a slight cough, but no shortness of breath. He denies body aches. The patient recently was diagnosed with a kidney stone and has had several urologic procedures. He had a stone in his left kidney lasered 2 weeks ago and had a stent placed. He was seen in the urology office this morning and had a negative KUB and his stent and Harvey catheter were removed in the office. The patient has had some dysuria since then. He denies any abdominal or back pain. He denies any chest pain, headache, neck pain or stiffness. He took 2 aspirin this evening with some improvement of his fever. The patient is borderline diabetic on metformin and denies any other medical problems. Review of Systems A complete 10 point review of systems was reviewed with the patient with pertinent positives and negatives as per history of present illness. All else were negative. Past Medical/Surgical History Medical Problems: (1) Diabetes (2) Enlarged prostate Social History Smoking Status: Former Smoker Marital Status: Current/Historical Medications Scheduled Aspirin (Aspirin Ec), 81 MG PO DAILY Cefdinir (Omnicef), 300 MG PO Q12H Cyanocobalamin (Vitamin B-12), 1,000 MCG PO DAILY Finasteride (Proscar), 5 MG PO QPM Nuqjdihyutk-Nxlhvubaqng-Dgc C- (Glucosamine Chondroitin), 1 CAP PO DAILY Metformin Hcl (Glucophage), 500 MG PO BID Tamsulosin Hcl (Flomax), 0.8 MG PO QPM Scheduled PRN Acetaminophen (Tylenol), 650 MG PO Q6 PRN for Pain Oxycodone/Acetaminophen 5MG/325MG (Percocet 5MG/325MG), 1 TABLET PO Q4H PRN for Pain Tramadol (Ultram), 50 MG PO Q8H PRN for Pain Physical Exam Vital Signs Date Time Temp Pulse Resp B/P (MAP) Pulse Ox O2 Delivery O2 Flow Rate FiO2 11/27/17 03:02 74 14 141/69 96 11/27/17 01:41 37.9 11/27/17 01:20 39.0 11/27/17 01:06 37.5 86 18 159/87 94 Room Air Physical Exam VITALS: Vitals are noted on the nurse's note and reviewed by myself. Vital signs stable. GENERAL: This is a 62-year-old male, in no acute distress, nondiaphoretic, well- developed well-nourished. SKIN: The skin was without rashes. EARS: External auditory canals clear, tympanic membranes pearly betts without erythema or effusion bilaterally. EYES: Pupils equal round and reactive to light and accommodation. MOUTH: Mucous membranes moist. Tonsils are not enlarged. Pharynx without erythema or exudate. NECK: Supple without nuchal rigidity. No lymphadenopathy. HEART: Regular rate and rhythm without murmurs gallops or rubs. LUNGS: Clear to auscultation bilaterally without wheezes, rales or rhonchi. ABDOMEN: Positive bowel sounds x 4. Soft, nontender to palpation. NEURO: Patient was alert and oriented to person place and time. Medical Decision & Procedures ER Provider Diagnostic Interpretation: CHEST 1 VIEW: No acute cardiopulmonary abnormalities. Laboratory Results 11/27/17 01:30 Red Blood Count 4.36, Mean Corpuscular Volume 92.9, Mean Corpuscular Hemoglobin 31.9, Mean Corpuscular Hemoglobin Concent 34.3, Mean Platelet Volume 9.8, Neutrophils (%) (Auto) 77.9, Lymphocytes (%) (Auto) 10.7, Monocytes (%) (Auto) 9.8, Eosinophils (%) (Auto) 1.0, Basophils (%) (Auto) 0.1, Neutrophils # (Auto) 8.58, Lymphocytes # (Auto) 1.18, Monocytes # (Auto) 1.08, Eosinophils # (Auto) 0.11, Basophils # (Auto) 0.01 11/27/17 01:30 Test 11/27/17 01:25 11/27/17 01:30 11/27/17 01:40 Urine Color YELLOW Urine Appearance TURBID (CLEAR) Urine pH 5.0 (4.5-7.5) Urine Specific [place] 1.023 (1.000-1.030) Urine Protein TRACE (NEG) Urine Glucose (UA) NEG (NEG) Urine Ketones NEG (NEG) Urine Occult Blood 2+ (NEG) Urine Nitrite POS (NEG) Urine Bilirubin NEG (NEG) Urine Urobilinogen NEG (NEG) Urine Leukocyte Esterase LARGE (NEG) Urine WBC (Auto) >30 /hpf (0-5) Urine RBC (Auto) >30 /hpf (0-4) Urine Hyaline Casts (Auto) 1-5 /lpf (0-5) Urine Epithelial Cells (Auto) 10-20 /lpf (0-5) Urine Bacteria (Auto) 2+ (NEG) White Blood Count 11.01 K/uL (4.8-10.8) Red Blood Count 4.36 M/uL (4.7-6.1) Hemoglobin 13.9 g/dL (14.0-18.0) Hematocrit 40.5 % (42-52) Mean Corpuscular Volume 92.9 fL (80-100) Mean Corpuscular Hemoglobin 31.9 pg (25-34) Mean Corpuscular Hemoglobin Concent 34.3 g/dl (32-36) Platelet Count 160 K/uL (130-400) Mean Platelet Volume 9.8 fL (7.4-10.4) Neutrophils (%) (Auto) 77.9 % Lymphocytes (%) (Auto) 10.7 % Monocytes (%) (Auto) 9.8 % Eosinophils (%) (Auto) 1.0 % Basophils (%) (Auto) 0.1 % Neutrophils # (Auto) 8.58 K/uL (1.4-6.5) Lymphocytes # (Auto) 1.18 K/uL (1.2-3.4) Monocytes # (Auto) 1.08 K/uL (0.11-0.59) Eosinophils # (Auto) 0.11 K/uL (0-0.5) Basophils # (Auto) 0.01 K/uL (0-0.2) RDW Standard Deviation 43.3 fL (36.4-46.3) RDW Coefficient of Variation 12.9 % (11.5-14.5) Immature Granulocyte % (Auto) 0.5 % Immature Granulocyte # (Auto) 0.05 K/uL (0.00-0.02) Anion Gap 6.0 mmol/L (3-11) Est Creatinine Clear Calc Drug Dose 79.4 ml/min Estimated GFR () 79.2 Estimated GFR (Non- 68.3 BUN/Creatinine Ratio 18.3 (10-20) Calcium Level 8.7 mg/dl (8.5-10.1) Total Bilirubin 0.5 mg/dl (0.2-1) Aspartate Amino Transf (AST/SGOT) 12 U/L (15-37) Alanine Aminotransferase (ALT/SGPT) 25 U/L (12-78) Alkaline Phosphatase 102 U/L (45-117) Total Protein 7.4 gm/dl (6.4-8.2) Albumin 3.2 gm/dl (3.4-5.0) Globulin 4.2 gm/dl (2.5-4.0) Albumin/Globulin Ratio 0.8 (0.9-2) Influenza Type A Antigen Neg for Influ A (NEG) Influenza Type B Antigen Neg for Influ B (NEG) Medications Administered Medications (Trade) Dose Ordered Sig/Chantelle Route Start Time Stop Time Status Last Admin Dose Admin Acetaminophen (Tylenol Tab) 1,000 mg NOW STAT PO 11/27/17 01:54 11/27/17 01:55 DC 11/27/17 01:57 1,000 MG Ceftriaxone Sodium (Rocephin Inj) 1 gm NOW STAT IV 11/27/17 02:26 11/27/17 02:27 DC 11/27/17 02:35 1 GM ED Course The patient was evaluated as above. Labs were drawn and IV access was obtained. Patient was reevaluated and findings were discussed. 1 g Rocephin was ordered. Discharge instructions were reviewed with the patient. The patient verbalized understanding of my assessment and treatment plan and was discharged home in good condition. Medical Decision Differential diagnosis includes UTI, pyelonephritis, pneumonia, influenza, among others. The patient is a 62-year-old male who presents today complaining of fever. Patient had recent urological instrumentation and stent removal today. Does have some dysuria. Urinalysis was suggestive of infection, with positive nitrites, leukocyte esterase, white blood cells, red blood cells and 2+ bacteria. This will be sent for culture. Patient was given Rocephin and will be placed on Omnicef. He was encouraged to continue Tylenol and ibuprofen for fevers. He will contact his urologist first thing in the morning. He will return here with any worsening fevers, back pain, vomiting or any other new/ concerning symptoms. Based on the patient's presentation and work up, I feel the patient is stable for outpatient treatment. The patient was educated to return to the emergency department for any worsening of their current condition or new/concerning symptoms. He will follow up with his urologist. Medication Reconcilliation Current Medication List: was personally reviewed by me Blood Pressure Screening Patient's blood pressure: Elevated blood pressure Blood pressure disposition: Elevated BP felt to be situational Impression Primary Impression: Urinary tract infection Departure Information Dispostion Home / Self-Care Condition GOOD Prescriptions Cefdinir (OMNICEF) 300 Mg Cap 300 MG PO Q12H for 7 Days, #14 CAP Prov: Isabell Gilliland PA-C 11/27/17 Referrals Corey Gill D.O. (PCP) Patient Instructions My [facility] Additional Instructions You have been treated in the Emergency Department for a Urinary Tract Infection (UTI). You have been prescribed Omnicef to be taken twice daily for 7 days. This is an antibiotic. All antibiotics have the potential to cause diarrhea. Stop this medication and contact a medical provider if you were to develop any significant adverse side effects including: wheezing, shortness of breath, passing out, vomiting, or a diffuse rash. Always take antibiotics as directed and COMPLETE the ENTIRE course regardless of the improvement of your symptoms. Drink plenty of water and stay well hydrated. As with any trip to the Emergency Department, you should follow-up with your Primary Care Provider from today's visit. Contact your urologist tomorrow to let them know that you are being treated for a UTI. Return to the emergency department if your symptoms persist despite treatment plan outlined above or if the following symptoms occur: increased fevers, chills , low back pain, nausea/vomiting, or blood in your urine. Problem Qualifiers Primary Impression: Urinary tract infection Urinary tract infection type: acute cystitis Hematuria presence: with hematuria Qualified Codes: N30.01 - Acute cystitis with hematuria
[2017-11-27 02:05] LABS: ALBUMIN 3.2 gm/dl (3.4-5.0); CALCIUM 8.7 mg/dl (8.5-10.1); CREATININE 1.13 mg/dl (0.60-1.40); POTASSIUM 3.9 mmol/L (3.5-5.1)
[2017-11-27 02:08] LABS: TOTAL PROTEIN 7.4 gm/dl (6.4-8.2)
[2017-11-27 02:12] LABS: INFLUENZA B ANTIGEN Neg for Influ B (NEG)
[2017-11-27] MEDS ORDERED: CEFTRIAXONE SOD INJ 1 GM ADDVIAL IV STA (02:26)
[2017-11-27] MEDS ORDERED: CEFD300C2 PO (02:50)
[2017-11-27 03:02] VITALS: BP 141/69; PULSE 74; O2SAT 96
--- NOTE | 2017-11-27 06:36 | DIAGNOSTIC IMAGING REPORT ---
CHEST ONE VIEW PORTABLE HISTORY: 62 years-old Male fever acute fever COMPARISON: Chest radiographs 10/22/2017 TECHNIQUE: Portable AP view of the chest FINDINGS: Cardiac mediastinal and hilar silhouettes are within normal limits. No pneumothorax, pleural effusion, focal airspace consolidation or overt pulmonary edema. Bones of the chest appear grossly intact. Moderate degenerative changes of the right AC joint. Multilevel endplate spurring of the spine. IMPRESSION: No acute process. The above report was generated using voice recognition software. It may contain grammatical, syntax or spelling errors. Electronically signed by: Antwan Kong M.D. 11/27/2017 6:35 AM Dictated Date/Time: 11/27/2017 6:34 AM
== END 2017-11-27 03:03 | disposition home or self-care (01) ==
LOC: C.EDB 01:04
DX: N30.01 Acute cystitis with hematuria (principal); N40.0 Benign prostatic hyperplasia without lower urinary tract symptoms; R03.0 Elevated blood-pressure reading, without diagnosis of hypertension; R73.03 Prediabetes; Z98.890 Other specified postprocedural states; Z87.442 Personal history of urinary calculi; Z79.82 Long term (current) use of aspirin; Z87.891 Personal history of nicotine dependence

== ENCOUNTER → 2017-12-25 | Outpatient (CLI) | payer BC ==
[~2017-12-25] MED LIST changes: +ASPI81TA28 PO; -CEPH500C PO; -DTR/5 PO; +OXYC-57 PO
--- NOTE | 2017-12-25 12:28 | DIAGNOSTIC IMAGING REPORT ---
EXAMINATION: RENAL ULTRASOUND CLINICAL HISTORY: N20.1 Ureteric [id number] COMPARISON STUDY: CT scan dated 10/17/2017 FINDINGS: The right kidney measures 12.2 cm. The left kidney measures 11.3 cm. There is minimal fullness of the left renal clotting system. There is 8 mm echogenic focus within the lower pole the left kidney suspicious for a calculus. The right renal calculi described on the recent CT scan are not visualized with certainty. No bladder abnormalities are visualized. Bilateral ureteral jets were visualized. The prostate is mildly enlarged IMPRESSION : 1. Suspected 8 mm lower pole left renal calculus 2. The additional bilateral renal calculi described on the prior CT scan are not visible ultrasonographically 3. Minor fullness of the left renal collecting system 4. Bilateral ureteral jets were visualized Electronically signed by: Mingo Alvarenga M.D. 12/25/2017 12:27 PM Dictated Date/Time: 12/25/2017 12:25 PM
--- NOTE | 2017-12-25 12:36 | DIAGNOSTIC IMAGING REPORT ---
KUB CLINICAL HISTORY: N20.1 Ureteric [id number] COMPARISON STUDY: 11/26/2017 FINDINGS: There are bilateral renal calculi. The largest on the right measures 5 mm. A somewhat linear calcification projected over the lower pole the right kidney, represent a parenchymal calcification a prior CT scan. The left-sided neck ureteral stent has been removed. There are no calcifications suspicious for ureteral calculi. There is no pathologic bowel dilatation. IMPRESSION: 1. Bilateral nephrolithiasis 2. No ureteral calculi are visualized on conventional radiographic imaging Electronically signed by: Mingo Alvarenga M.D. 12/25/2017 12:35 PM Dictated Date/Time: 12/25/2017 12:33 PM
== END | disposition home or self-care (01) ==
LOC: C.ULTR 11:47
PROVIDERS: ATTEND Urology
DX: N20.1 Calculus of ureter (principal)

== ENCOUNTER → 2017-12-25 | Outpatient (CLI) | payer BC | END | disposition home or self-care (01) | LOC: C.LABSPEC 17:20 | PROVIDERS: ATTEND Urology | DX: R33.9 Retention of urine, unspecified (principal) ==

== ENCOUNTER → 2018-04-02 | Outpatient (CLI) | payer BC ==
[2018-04-02 16:53] LABS: ALBUMIN 3.6 gm/dl (3.4-5.0); ALT/SGPT 29 U/L (12-78); AST/SGOT 18 U/L (15-37); BLOOD UREA NITROGEN 18 mg/dl (7-18); CALCIUM 9.1 mg/dl (8.5-10.1); CARBON DIOXIDE 24 mmol/L (21-32); CREATININE 1.05 mg/dl (0.60-1.40); GLUCOSE 126 mg/dl (70-99); POTASSIUM 4.1 mmol/L (3.5-5.1); SODIUM 137 mmol/L (136-145)
[2018-04-02 16:58] LABS: ALKALINE PHOSPHATASE 82 U/L (45-117); CHOLESTEROL 157 mg/dl (0-200); LDL CHOLESTEROL (DIRECT) 107 mg/dl; TOTAL PROTEIN 7.3 gm/dl (6.4-8.2)
[2018-04-03 06:32] LABS: HEMOGLOBIN A1C 6.7 % (4.5-5.6)
== END | disposition home or self-care (01) ==
LOC: C.LABPBG 14:23
PROVIDERS: ATTEND Family Medicine
DX: E11.51 Type 2 diabetes mellitus with diabetic peripheral angiopathy without gangrene (principal)

== ENCOUNTER 2018-07-07 11:21 | Observation (INO) | payer BC ==
[2018-06-18 13:13] VITALS: BMI 42.0
--- NOTE | 2018-06-23 16:28 | PAT Medication Instructions ---
Service Date Jun 23, 2018. Current Home Medication List Acetaminophen (Tylenol), 650 MG PO Q6 PRN for Pain Aspirin (Aspirin Ec), 81 MG PO QAM Atorvastatin (Lipitor), 10 MG PO QAM Cyanocobalamin (Vitamin B-12), 1,000 MCG PO QAM Finasteride (Proscar), 5 MG PO QAM Iopdghtggxb-Ieajurjtebd-Qsb C- (Glucosamine Chondroitin), 1 CAP PO QAM Metformin Hcl (Glucophage), 500 MG PO BID Naproxen (Aleve), 220 MG PO QD PRN for Pain Tamsulosin Hcl (Flomax), 0.8 MG PO QPM Medication Instructions For Your Scheduled Surgery - Check with surgeon and prescribing physician for instructions: Naproxen (Aleve), 220 MG PO QD PRN for Pain Aspirin (Aspirin Ec), 81 MG PO QAM - Hold the following medications starting 06/25/18: Hfulmcpzzxg-Whfeaubkmbe-Ihz C- (Glucosamine Chondroitin), 1 CAP PO QAM - Hold the following medications the morning of surgery: Metformin Hcl (Glucophage), 500 MG PO BID Cyanocobalamin (Vitamin B-12), 1,000 MCG PO QAM - Take the following medications the morning of surgery with a sip of water: Acetaminophen (Tylenol), 650 MG PO Q6 PRN for Pain (okay to take up to 4 hours prior to surgery if needed) Atorvastatin (Lipitor), 10 MG PO QAM Finasteride (Proscar), 5 MG PO QAM - Take the following medications as scheduled the night before surgery: Tamsulosin Hcl (Flomax), 0.8 MG PO QPM Metformin Hcl (Glucophage), 500 MG PO BID Acetaminophen (Tylenol), 650 MG PO Q6 PRN for Pain (if needed) If you have any questions please call us at [phone] or [phone] or [phone]
[2018-06-24 11:45] VITALS: BMI 43.0
[2018-06-24 13:18] LABS: BASO % 0.1 %; BASO ABS # 0.01 K/uL (0-0.2); EOS % 3.4 %; EOS ABS # 0.23 K/uL (0-0.5); HEMOGLOBIN 15.1 g/dL (14.0-18.0); IG# 0.02 K/uL (0.00-0.02); LYMPH % 25.5 %; LYMPH ABS # 1.72 K/uL (1.2-3.4); MEAN CELL VOLUME 95.4 fL (80-100); MEAN CORPUSCULAR HEMOGLOBIN 32.8 pg (25-34); MEAN CORPUSCULAR HGB CONC 34.3 g/dl (32-36); MEAN PLATELET VOLUME 10.6 fL (7.4-10.4); MONO % 9.8 %; MONO ABS # 0.66 K/uL (0.11-0.59); NEUT % 60.9 %; NEUT ABS # 4.11 K/uL (1.4-6.5); PLATELET COUNT 169 K/uL (130-400); RED CELL DISTRIBUTION WIDTH CV 13.3 % (11.5-14.5); RED CELL DISTRIBUTION WIDTH SD 46.4 fL (36.4-46.3); WHITE BLOOD COUNT 6.75 K/uL (4.8-10.8)
[2018-06-24 14:13] LABS: CREATININE 1.04 mg/dl (0.60-1.40); POTASSIUM 4.3 mmol/L (3.5-5.1)
[~2018-07-07] VITALS: Ht 175.3 cm; Wt 133.7 kg
[2018-07-07] VITALS (7 sets, daily range): BP systolic 121–165; BP diastolic 65–79; PULSE 54–69; TEMP 36.4–36.8; O2SAT 92–99; Ht 175.3 cm; Wt 133.7 kg
[~2018-07-07 11:21] MED LIST changes: +ATOR10TA82 PO; +CIPROFLOXACIN / D5W 400 MG IV SCH; +LACTATED RINGER'S 1000ML 1,000 ML IV SCH; +NAPR1TAB9 PO; -OXYC-57 PO; -TRAM-10 PO
[2018-07-07] MEDS ORDERED: FENTANYL CITRATE INJ 50 MCG/1 ML 2 ML VIAL ONE ×2 (15:33→16:31)
[2018-07-07] MEDS ORDERED: ONDANSETRON INJ 2 MG/ML 2 ML VIAL ONE (15:34)
[2018-07-07] MEDS ORDERED: PROPOFOL IV EMULSION 10 MG/ML 20 ML VIAL ONE (15:34)
[2018-07-07] MEDS ORDERED: LIDOCAINE HCL 2% 2 ML VIAL (20MG/ML) ONE (15:34)
[2018-07-07] MEDS ORDERED: DEXAMETHASONE SOD INJ 4 MG/ML VIAL ONE (15:34)
[2018-07-07] MEDS ORDERED: ATROPINE SULFATE 0.1 MG/ML 5ML SYR IV PRN (16:45)
[2018-07-07] MEDS ORDERED: EpHEDrine SULFATE INJ 50 MG/ML AMP IV PRN (16:45)
[2018-07-07] MEDS ORDERED: ONDANSETRON INJ 2 MG/ML 2 ML VIAL IV PRN ×2 (16:45→17:30)
[2018-07-07] MEDS ORDERED: PROMETHAZINE HCL INJ 6.25 MG in SODIUM CHLORIDE 0.9% 50ML 50 ML IV PRN (16:45)
[2018-07-07] MEDS ORDERED: FENTANYL CITRATE INJ 50 MCG/1 ML 2 ML VIAL IV PRN (16:45)
--- NOTE | 2018-07-07 17:14 | [facility] Operative Report ---
Operative Report Operative Date Jul 07, 2018. Pre-Operative Diagnosis Benign prostatic hyperplasia Post-Operative Diagnosis Benign prostatic hyperplasia Procedure(s) Performed Cystoscopy, Transurethral Resection Prostate Surgeon Dr. Hernandez Program Attendant Surgeon(s) None Estimated Blood Loss 10cc Specimens A. Prostate chips Drains 22 [place]ian Harvey Anesthesia Type General Complication(s) none Disposition yes Recovery Room / PACU Description of Procedure Patient was identified in the preoperative holding area, appropriate informed consents reviewed and completed and he was transported to the operating suite. Upon arrival he received appropriate preoperative antibiotics in the form of ciprofloxacin. Adequate general anesthesia was achieved, he was placed in dorsal lithotomy position where he was sterilely prepped and draped in standard fashion. I began the case with passing a 27 [place]ian resectoscope with 30 lens and visual obturator. Inspection of the urethra revealed no evidence of stricture disease. Inspection of the prostate immediately confirmed a large, obstructive prostate with trilobar hypertrophy. I was able to bypass the prostate and inspect the bladder and identify ureteral orifices on both sides. I then exchanged the visual obturator for a resecting element. I began with a button electrode. I incised the bladder neck 5 and 7:00. I then exchanged a button electrode for loop, and resected intravesical median lobe flush with the bladder neck. I then used a combination of loop cautery and button electrode to resect the left and right lateral lobes. I continuously work back and forth between the 2 devices to maintain hemostasis after resecting significant quantities of tissue. The conclusion of the case I felt that the prostatic fossa was appropriately opened, I had trimmed some of the apical tissue adjacent to the verumontanum, I obtained meticulous hemostasis and ensured all chips were irrigated out of the bladder. A 22 Bel[place]ian Harvey catheter was placed , the specimen was passed off the table and the case concluded. Patient was taken to the PACU in stable condition. I attest to the content of the Intraoperative Record and any orders documented therein. Any exceptions are noted below.
[2018-07-07] MEDS ORDERED: ACETAMINOPHEN/CODEINE 300/30MG TAB PO PRN (17:30)
[2018-07-07] MEDS ORDERED: ACETAMINOPHEN 325 MG TAB PO PRN (17:30)
--- NOTE | 2018-07-07 18:52 | Anesthesiology Progress Note ---
Anesthesia Post Op Note Date & Time Jul 07, 2018 at 18:51 Vital Signs Pain Intensity: 0 Vital Signs Past 12 Hours Date Time Temp Pulse Resp B/P (MAP) Pulse Ox O2 Delivery O2 Flow Rate FiO2 07/07/18 18:15 60 16 166/75 97 Nasal Cannula 2 07/07/18 18:10 58 18 159/84 98 Nasal Cannula 2 07/07/18 18:00 60 13 175/93 96 Nasal Cannula 2 07/07/18 17:50 36.4 56 15 154/72 100 Nasal Cannula 2 07/07/18 17:40 53 13 160/76 100 Nasal Cannula 2 07/07/18 17:30 57 15 146/80 98 Oxymask 10 07/07/18 17:22 36.3 62 22 177/80 100 Oxymask 10 07/07/18 12:04 36.4 54 18 137/73 (94) 97 Room Air Notes Mental Status: alert / awake / arousable, participated in evaluation Pt Amnestic to Procedure: Yes Nausea / Vomiting: adequately controlled Pain: adequately controlled Airway Patency, RR, SpO2: stable & adequate BP & HR: stable & adequate Hydration State: stable & adequate Anesthetic Complications: no major complications apparent
[2018-07-07] MEDS ORDERED: IV FLUIDS COMPLETED PRN (20:15)
[2018-07-07] MEDS ORDERED: PNEUMOCOCCAL POLYSACCHARIDES 25 MCG/0.5 ML VIAL/SYR IM. ONE (20:15)
[2018-07-07] MEDS ORDERED: PNEUMOCOCCAL ADMINISTRATION CHARGE ONE (20:15)
[2018-07-07] MEDS: LACTATED RINGER'S 1000ML 1,000 ML IV SCH (20:56)
[2018-07-08] MEDS: LACTATED RINGER'S 1000ML 1,000 ML IV SCH ×2 (03:12→11:00)
[2018-07-08 03:30] VITALS: BP 133/77; PULSE 67; TEMP 36.8; O2SAT 96
[2018-07-08] MEDS ORDERED: CIPROFLOXACIN 500 MG TAB PO SCH (06:00)
[2018-07-08 06:29] LABS: BASO % 0.1 %; BASO ABS # 0.01 K/uL (0-0.2); HEMATOCRIT 43.5 % (42-52); HEMOGLOBIN 15.2 g/dL (14.0-18.0); IG# 0.06 K/uL (0.00-0.02); LYMPH % 8.7 %; LYMPH ABS # 1.19 K/uL (1.2-3.4); MEAN CELL VOLUME 94.2 fL (80-100); MEAN CORPUSCULAR HEMOGLOBIN 32.9 pg (25-34); MEAN CORPUSCULAR HGB CONC 34.9 g/dl (32-36); MEAN PLATELET VOLUME 10.2 fL (7.4-10.4); MONO % 5.6 %; MONO ABS # 0.77 K/uL (0.11-0.59); NEUT % 85.2 %; NEUT ABS # 11.71 K/uL (1.4-6.5); PLATELET COUNT 162 K/uL (130-400); RED CELL DISTRIBUTION WIDTH CV 12.9 % (11.5-14.5); RED CELL DISTRIBUTION WIDTH SD 44.2 fL (36.4-46.3); WHITE BLOOD COUNT 13.74 K/uL (4.8-10.8)
[2018-07-08 06:56] LABS: CALCIUM 8.8 mg/dl (8.5-10.1); CREATININE 1.24 mg/dl (0.60-1.40); POTASSIUM 4.4 mmol/L (3.5-5.1)
[2018-07-08 07:54] VITALS: BP 142/78; PULSE 66; TEMP 36.3; O2SAT 97
[2018-07-08] MEDS ORDERED: METFORMIN HCL 500 MG TAB PO SCH (08:00)
[2018-07-08 08:07] VITALS: O2SAT 97
[2018-07-08] MEDS ORDERED: CIPR-255 PO ×2 (08:07→08:11)
[2018-07-08] MEDS ORDERED: PHEN95TA14 PO ×2 (08:07→08:11)
--- NOTE | 2018-07-08 08:08 | Discharge Instructions ---
Discharge Instructions Date of Service Jul 08, 2018. Admission Reason for Admission: Benign Prostatic Hyperplasia W/Urinary Obstruction Discharge Discharge Diagnosis / Problem: BPH Discharge Goals Goal(s): Decrease discomfort, Improve function, Increase independence, Improve disease control, Prevent Disease Progression Activity Recommendations Activity Limitations: resume your previous activity Lifting Limitations: none Exercise/Sports Limitations: none May Resume Sexual Activity: when tolerated Shower/Bathe: no limitations Driving or Machine Use: no limitations . Instructions / Follow-Up Instructions / Follow-Up Please keep your previously scheduled follow up appointment with Dr. Hernandez Current Hospital Diet Patient's current hospital diet: Diabetes Type 2 Diet Discharge Diet Recommended Diet: Diabetes Type 2 Diet Procedures Procedures Performed: Cystoscopy, Transurethral Resection Prostate Pending Studies Studies pending at discharge: no Medical Emergencies . Who to Call and When: Medical Emergencies: If at any time you feel your situation is an emergency, please call 911 immediately. . Non-Emergent Contact Non-Emergency issues call your: Urologist Call Non-Emergent contact if: you have a fever, temperature is above 101.5, your pain is not controlled . . "Provider Documentation" section prepared by Steven Friedman. .
--- NOTE | 2018-07-08 08:31 | Progress Note ---
Progress Note Date of Service Jul 08, 2018. Progress Note S: no pain or other issues - progressing very well - urine clearing appropriately O: 07/08/18 06:14 Red Blood Count 4.62, Mean Corpuscular Volume 94.2, Mean Corpuscular Hemoglobin 32.9, Mean Corpuscular Hemoglobin Concent 34.9, Mean Platelet Volume 10.2, Neutrophils (%) (Auto) 85.2, Lymphocytes (%) (Auto) 8.7, Monocytes (%) (Auto) 5.6, Eosinophils (%) (Auto) 0.0, Basophils (%) (Auto) 0.1, Neutrophils # (Auto) 11.71, Lymphocytes # (Auto) 1.19, Monocytes # (Auto) 0.77, Eosinophils # (Auto) 0.00, Basophils # (Auto) 0.01 07/08/18 06:14 Test 07/07/18 17:27 07/08/18 06:14 Bedside Glucose 156 mg/dl (70-99) White Blood Count 13.74 K/uL (4.8-10.8) Red Blood Count 4.62 M/uL (4.7-6.1) Hemoglobin 15.2 g/dL (14.0-18.0) Hematocrit 43.5 % (42-52) Mean Corpuscular Volume 94.2 fL (80-100) Mean Corpuscular Hemoglobin 32.9 pg (25-34) Mean Corpuscular Hemoglobin Concent 34.9 g/dl (32-36) Platelet Count 162 K/uL (130-400) Mean Platelet Volume 10.2 fL (7.4-10.4) Neutrophils (%) (Auto) 85.2 % Lymphocytes (%) (Auto) 8.7 % Monocytes (%) (Auto) 5.6 % Eosinophils (%) (Auto) 0.0 % Basophils (%) (Auto) 0.1 % Neutrophils # (Auto) 11.71 K/uL (1.4-6.5) Lymphocytes # (Auto) 1.19 K/uL (1.2-3.4) Monocytes # (Auto) 0.77 K/uL (0.11-0.59) Eosinophils # (Auto) 0.00 K/uL (0-0.5) Basophils # (Auto) 0.01 K/uL (0-0.2) RDW Standard Deviation 44.2 fL (36.4-46.3) RDW Coefficient of Variation 12.9 % (11.5-14.5) Immature Granulocyte % (Auto) 0.4 % Immature Granulocyte # (Auto) 0.06 K/uL (0.00-0.02) Anion Gap 8.0 mmol/L (3-11) Est Creatinine Clear Calc Drug Dose 80.6 ml/min Estimated GFR () 70.3 Estimated GFR (Non- 60.6 BUN/Creatinine Ratio 16.6 (10-20) Calcium Level 8.8 mg/dl (8.5-10.1) Vital Signs Past 12 Hours Date Time Temp Pulse Resp B/P (MAP) Pulse Ox O2 Delivery O2 Flow Rate FiO2 07/08/18 08:07 97 07/08/18 07:54 36.3 66 20 142/78 (99) 97 Room Air 07/08/18 07:50 Room Air 07/08/18 03:30 36.8 67 18 133/77 (95) 96 Room Air 07/07/18 23:20 36.5 64 18 121/65 (83) 96 Room Air 07/07/18 23:15 Room Air 07/07/18 21:30 36.8 69 18 138/78 (98) 99 Room Air NAD AAOx3 urine clearing A/P: POD #1 s/p TURP - voiding trial this AM - plan for d/c home after he voids
--- NOTE | 2018-07-08 08:56 | Anesthesiology Progress Note ---
Anesthesia Post Op Note Date & Time Jul 08, 2018 at 08:56 Vital Signs Pain Intensity: 0.0 Vital Signs Past 12 Hours Date Time Temp Pulse Resp B/P (MAP) Pulse Ox O2 Delivery O2 Flow Rate FiO2 07/08/18 08:07 97 07/08/18 07:54 36.3 66 20 142/78 (99) 97 Room Air 07/08/18 07:50 Room Air 07/08/18 03:30 36.8 67 18 133/77 (95) 96 Room Air 07/07/18 23:20 36.5 64 18 121/65 (83) 96 Room Air 07/07/18 23:15 Room Air 07/07/18 21:30 36.8 69 18 138/78 (98) 99 Room Air Notes Mental Status: alert / awake / arousable, participated in evaluation Pt Amnestic to Procedure: Yes Nausea / Vomiting: adequately controlled Pain: adequately controlled Airway Patency, RR, SpO2: stable & adequate BP & HR: stable & adequate Hydration State: stable & adequate Anesthetic Complications: no major complications apparent
[2018-07-08] MEDS ORDERED: ATORVASTATIN 10 MG TAB PO SCH (09:00)
[2018-07-08] MEDS ORDERED: CYANOCOBALAMIN 500 MCG TAB (VIT B-12) PO SCH (09:00)
[2018-07-08] MEDS ORDERED: FINASTERIDE 5 MG TAB PO SCH (09:00)
[2018-07-08 11:17] VITALS: BP 142/78; PULSE 66; TEMP 36.3; O2SAT 97
--- NOTE | 2018-07-09 08:19 | Discharge Summary ---
Discharge Summary Date of Service Jul 09, 2018. Admission Date/Reason Jul 07, 2018 at 17:31 Benign Prostatic Hyperplasia W/Urinary Obstruction. Discharge Date/Disposition Jul 08, 2018 Home Diagnosis Principal Diagnosis: BPH Procedure(s) Performed Cystoscopy, TURP Medication Reconciliation New Medications: Ciprofloxacin Hcl (Cipro) 500 Mg Tab 500 MG PO BID, #6 TAB Phenazopyridine Hcl (Azo Tabs) 95 Mg Tab 2 TABS PO Q8 for dysuria, #20 TBS Continued Medications: Acetaminophen (Tylenol) 325 Mg Tab 650 MG PO Q6 PRN for Pain, TAB Aspirin (Aspirin Ec) 81 Mg Tab 81 MG PO QAM Atorvastatin (Lipitor) 10 Mg Tab 10 MG PO QAM, TAB Cyanocobalamin (Vitamin B-12) 1,000 Mcg Tab 1000 MCG PO QAM, TAB Pyahuegdfpx-Walznvnbdcm-Mvf C- (Glucosamine Chondroitin) 1 Cap Cap 1 CAP PO QAM Metformin Hcl (Glucophage) 500 Mg Tab 500 MG PO BID Naproxen (Aleve) 220 Mg Tab 220 MG PO QD PRN for Pain, TAB Discontinued Medications: Finasteride (Proscar) 5 Mg Tab 5 MG PO QAM Tamsulosin Hcl (Flomax) 0.4 Mg Cap 0.8 MG PO QPM TWO 0.4 MG CAPSULES Admission Physical Exam As per Admitting History & Physical. Hospital Course Admitted for TURP - tolerated procedure very well - progressed appropriately overnight - passed a voiding trial on the morning of POD#1 - d/c home in stable condition Discharge Instructions Please refer to the electronic Patient Visit Report (Discharge Instructions) for additional information.
== END 2018-07-08 11:56 | disposition home or self-care (01) ==
LOC: C.ACU 11:21 → C.MSW 17:31 → ENRESERV 18:13
PROVIDERS: ADMIT Urology; ATTEND Urology
DX: N40.1 Benign prostatic hyperplasia with lower urinary tract symptoms (principal); N13.8 Other obstructive and reflux uropathy; R33.9 Retention of urine, unspecified; N20.0 Calculus of kidney; N52.9 Male erectile dysfunction, unspecified; F17.220 Nicotine dependence, chewing tobacco, uncomplicated; E11.9 Type 2 diabetes mellitus without complications; Z90.49 Acquired absence of other specified parts of digestive tract; Z79.82 Long term (current) use of aspirin

== ENCOUNTER 2019-03-22 17:05 | Inpatient (IN) ==
[2019-03-22] MEDS ORDERED: SODIUM CHLORIDE 0.9% 1000ML 1,000 ML IV SCH (17:45)
--- NOTE | 2019-03-22 18:35 | History & Physical Report ---
Date of Service March 22, 2019 Assessment & Plan (1) Kidney stones: Patient 6 cm right kidney stone with associated hydronephrosis and labs as of 428 have slight increase of his creatinine labs today are currently pending. Patient be hydrated use parenteral opiate pain medications. Will avoid nonsteroidals if his kidney function is still up. Flomax will be continued a urology consult will be undertaken including he will be kept n.p.o. in the morning for possibility of a cystoscopy on 03/23 (2) Diabetes: Patient's metformin will be held insulin sliding scale will be used (3) Nausea: Patient with IV fluids and antiemetics of Zofran and Phenergan (4) DVT prophylaxis: Given the consideration of upcoming procedure the patient will be on teds and SCDs at this time History of Present Illness Primary Care Provider: Corey AnnaTorito AyersJairo 64-year-old male with type 2 diabetes who was in the emergency department 1 day ago and found to have a 6 mm right renal stone with mild hydro-attempt to be treated with outpatient medication and failed here with pain nausea vomiting inability keep p.o. down including p.o. meds. Patient has right flank pain is no hematuria actively nauseous. He has had one stone in the past removed with lithotripsy laser lithotripsy by cystoscopy. Other than that he is generally fairly healthy has had no recent chest pain shortness of breath orthopnea range of bowel function but he does get nauseous with anesthesia Allergies Allergy/AdvReac Type Severity Reaction Status Date / Time No Known Allergies Allergy Unverified 03/21/19 09:12 Home Medications Home Medications Medication Instructions Recorded Confirmed Type aspirin, buffered 162.5 mg PO DAILY 03/21/19 03/21/19 History atorvastatin 10 mg PO DAILY 03/21/19 03/21/19 History cyanocobalamin (vitamin B-12) 1,000 mcg PO DAILY 03/21/19 03/21/19 History [Vitamin B-12] [id number]-clqdvi-[id number]-D3-C-Mn 2 tab PO DAILY 03/21/19 03/21/19 History lisinopril 2.5 mg PO DAILY 03/21/19 03/21/19 History metformin 1,000 mg PO BID 03/21/19 03/21/19 History oxycodone-acetaminophen [Percocet] 1 tab PO Q6H PRN #30 tab 03/21/19 Rx tadalafil 5.5 mg PO DAILY 03/21/19 03/21/19 History tamsulosin [Flomax] 0.4 mg PO DAILY #10 cap 03/21/19 Rx Past Med/Surg History Medical History Kidney stones (Acute) Enlarged prostate (Chronic) Diabetes (Chronic) BPH loc w/o ur obs/LUTS Urinary tract infection (Acute) Family History Other Family history non-contributory Social History Preferred Language: [place] marital status: Current Living Situation: Spouse current occupational status: employed Feels Safe at Home: Yes Smoking Status: Never smoker Review of Systems Review of Systems: ROS: well nourished well developed. In mild to moderate discomfort No double vision blurry vision No problems with speech or swallowing No palpitations, chest pain or pressure No Wheezing or breathing issues No abdominal pain has had persistent nausea and some vomiting without diarrhea No burning urine urine frequency or changes in color No focal joint pain or muscle pain No skin rashes or oral lesions No unusual bruising or bleeding Is focused back pain on the right side No changes in memory or confusion Physical Exam Physical Exam: The patient appeared uncomfortable and ill-appearing Vital signs as documented. Head exam is unremarkable. normocephalic, atraumatic Neck is without jugular venous distension, thyromegaly, or lymphademopathy Lungs are clear to auscultation and percussion. Cardiac exam reveals Rhythm is regular. First and second heart sounds normal. Abdominal exam reveals normal bowel sounds, no masses, no organomegaly Is right CVA angle tenderness Extremities are nonedematous and both pedal pulses are present Neurologic exam is A&Ox3, no focal deficits, strength is equal bilateral Psychologically seems neither anxious or depressed Skin is warm Dry without bruises or lesions Results & Data Vital Signs (Past 12 Hours) Vital Signs Temp Pulse Resp BP Pulse Ox 03/22/19 17:13 37.0 C 79 22 180/[address] abd from 03/21/19 : Mild right-sided hydroureteronephrosis secondary to a 6 x 4 x 6 mm calculus of the proximal right ureter noted at the level of the mid L3 vertebral body. Nonobstructing bilateral nephrolithiasis. Prostamegaly. No bowel obstruction or focal bowel wall thickening. Hepatic steatosis. Cholecystectomy.
--- NOTE | 2019-03-22 18:36 | XRay Report ---
KUB HISTORY: The right-sided flank pain with reported right-sided ureteral calculus kidney stone dx yest erday on CT COMPARISON: CT abdomen and pelvis 03/21/2019 FINDINGS: The bowel gas pattern is non-obstructive. There is no organomegaly. Renal shadows are part ially obscured by bowel gas. Right nephrolithiasis redemonstrated. There are 2 regions foci noted pro jecting about the right abdomen at the level of the inferior endplate L2 and at the L2-L3 disc space. The more distal focus measures 6 mm in the proximal one measures [address], only one u reteral calculus with identified at approximately the L2-L3 level. No significant migration from comp arison. No pneumoperitoneum or pneumatosis. Degenerative changes of the pelvis, hips and spine. No fr acture. IMPRESSION: 1. There are two radiodense foci noted about the right upper abdomen adjacent to the L2-L3 level sugg estive of ureteral calculi measuring 4 and 6 mm respectively. No significant distal migration from ye sterday's exam. 2. Right nephrolithiasis redemonstrated. Electronically signed by: Antwan Kong M.D. 03/22/2019 6:34 PM
[2019-03-22 18:37] LABS: Eosinophils # (auto) 0.01 K/uL (0-0.5); Eosinophils % (auto) 0.1 %; Hematocrit (blood only) 41.6 % (42-52); Hemoglobin 14.8 g/dL (14.0-18.0); Immature Granulocytes # (auto) 0.02 K/uL (0.00-0.02); Immature Granulocytes % (auto) 0.3 %; Lymphocytes # (auto) 0.43 K/uL (1.2-3.4); Mean Corpuscular Hgb Conc 35.6 g/dL (32-36); Mean Corpuscular Volume 92.9 fL (80-100); Mean Platelet Volume 10.3 fL (7.4-10.4); Monocytes # (auto) 0.97 K/uL (0.11-0.59); Monocytes % (auto) 13.6 %; Neutrophils # (auto) 5.69 K/uL (1.4-6.5); Platelet Count 107 K/uL (130-400); RDW Coefficient of Variation 13.1 % (11.5-14.5); RDW Standard Deviation 44.6 fL (36.4-46.3); Red Blood Count 4.48 M/uL (4.7-6.1); White Blood Count 7.12 K/uL (4.8-10.8)
[2019-03-22 18:53] LABS: BUN Creatinine Ratio 11.3 (10-20); Calcium 8.5 mg/dl (8.5-10.1); Creatinine Clr Calc Pharmacy 52.4 ml/min; Est GFR (African American) 47.6; Est GFR (Non-African American) 41.1
--- NOTE | 2019-03-22 18:54 | Emergency Department Note ---
Entered by Jeffrey Whittaker acting as a scribe for Kiko Ho DO History of Present Illness General Chief complaint: Kidney Stone Stated complaint: KIDNEY STONES Time Seen by Provider: 03/22/19 17:22 Source: patient History of Present Illness Onset (ago): day(s) (evaluated for pain yesterday) Location: right (flank) Pain Consistency: + other (persistent) Quality: + other (right flank pain associated with kidney stone) Relieved By: + medication (temporarily with Percocet) Associated symptoms: + nausea/vomiting The patient is a 64 year old male who presents to the Emergency Room with complaints of persistent right-sided flank pain. The patient was evaluated yesterday morning in the ER for his symptoms and discharged home. He called the office of Dr. Hernandez [facility] today and was advised to return due to the size of his 6 mm kidney stone and kidney function. The patient notes that his pain is temporarily improved with Percocet for a couple of hours. He reports some nausea and vomiting. He reports a history of ureteral stent placement for kidney stones. Home Medications Home Medications Medication Instructions Recorded Confirmed Type aspirin, buffered 162.5 mg PO DAILY 03/21/19 03/21/19 History atorvastatin 10 mg PO DAILY 03/21/19 03/21/19 History cyanocobalamin (vitamin B-12) 1,000 mcg PO DAILY 03/21/19 03/21/19 History [Vitamin B-12] [id number]-wgypij-zxkhsqzj-D3-C-Mn 2 tab PO DAILY 03/21/19 03/21/19 History lisinopril 2.5 mg PO DAILY 03/21/19 03/21/19 History metformin 1,000 mg PO BID 03/21/19 03/21/19 History oxycodone-acetaminophen [Percocet] 1 tab PO Q6H PRN #30 tab 03/21/19 Rx tadalafil 5.5 mg PO DAILY 03/21/19 03/21/19 History tamsulosin [Flomax] 0.4 mg PO DAILY #10 cap 03/21/19 Rx Allergies Allergy/AdvReac Type Severity Reaction Status Date / Time No Known Allergies Allergy Unverified 03/21/19 09:12 Past Med/Surg History Medical History Kidney stones (Acute) Enlarged prostate (Chronic) Diabetes (Chronic) BPH loc w/o ur obs/LUTS Urinary tract infection (Acute) Family History Other Family history non-contributory Social History Preferred Language: Spanish marital status: Current Living Situation: Spouse current occupational status: employed Feels Safe at Home: Yes Smoking Status: Never smoker Review of Systems See HPI for pertinent positives & negatives. and A total of 10 systems reviewed and were otherwise negative Physical Exam Vital Signs Vital Signs - 24 hr 03/22/19 17:13 Temperature 37.0 C Temperature Source Oral Sepsis Recent Fever Within 48 Hours No Sepsis New/Unexplained Change in Mental Status No Sepsis Action Taken by Nursing No Action Required Pulse Rate 79 Respiratory Rate 22 Respiratory Effort / Characteristics Spontaneous Blood Pressure 180/86 H Blood Pressure Mean 117 Blood Pressure Position Sitting Pulse Oximetry 98 Oxygen Delivery Method Room Air CONSTITUTIONAL/VITAL SIGNS: Reviewed / noted above. GENERAL: Non-toxic in appearance. INTEGUMENTARY: Warm, dry, and [place]. HEAD: Normocephalic. EYES: without scleral icterus or trauma. ENT/OROPHARYNX: clear and moist. LYMPHADENOPATHY/NECK: Is supple without lymphadenopathy or meningismus. RESPIRATORY: Lungs clear and equal. CARDIOVASCULAR: Regular rate and rhythm. GI/ABDOMEN: Soft and nontender. No organomegaly or pulsatile mass. No rebound or guarding. Normal bowel sounds. EXTREMITIES: Warm and well perfused. BACK: No CVA tenderness. NEUROLOGICAL: Intact without focal deficits. PSYCHIATRIC: normal affect. MUSCULOSKELETAL: Normally developed with good muscle tone. Course 152: The patient was evaluated in room C12B with Meme Batista - Medical Student. A history and physical examination were performed. 1600: I personally evaluated the patient in room C12B, and I performed a complete history and physical examination. 1841: I consulted Dr. Simmons - [facility] Hospitalist. The patient will be reevaluated for hospitalization. Administered Medications Medical Decision Making Differential Diagnosis Differential considered: pancreatitis, hepatitis, or acute cholecystitis, AAA, UTI, pyelonephritis, kidney stones, appendicitis, diverticulitis, shingles, bowel obstruction mesenteric ischemia, intussusception,hernia, testicular torsion Medical Records Attestation: I reviewed the patient's medical records. Home Medications Current Medication List: was personally reviewed by me Laboratory Data Attestation: I reviewed the patient's lab results. Result diagrams: 03/22/19 18:00 03/22/19 18:00 Lab Results 03/22/19 Range/Units 18:00 WBC 7.12 (4.8-10.8) K/uL RBC 4.48 L (4.7-6.1) M/uL Hgb 14.8 (14.0-18.0) g/dL Hct 41.6 L (42-52) % MCV 92.9 (80-100) fL MCH 33.0 (25-34) pg MCHC 35.6 (32-36) g/dL RDW Std Deviation 44.6 (36.4-46.3) fL RDW Coeff of Ole 13.1 (11.5-14.5) % Plt Count 107 L (130-400) K/uL MPV 10.3 (7.4-10.4) fL Immature Gran % (Auto) 0.3 % Neut % (Auto) 80.0 % Lymph % (Auto) 6.0 % [place] % (Auto) 13.6 % Eos % (Auto) 0.1 % Baso % (Auto) 0.0 % Immature Gran # (Auto) 0.02 (0.00-0.02) K/uL Neut # (Auto) 5.69 (1.4-6.5) K/uL Lymph # (Auto) 0.43 L (1.2-3.4) K/uL [place] # (Auto) 0.97 H (0.11-0.59) K/uL Eos # (Auto) 0.01 (0-0.5) K/uL Baso # (Auto) 0.00 (0-0.2) K/uL Imaging Data Radiologist's Impression: Radiology results as stated below per my review and the radiologist's interpretation: KUB HISTORY: The right-sided flank pain with reported right-sided ureteral calculus kidney stone dx yesterday on CT COMPARISON: CT abdomen and pelvis 03/21/2019 FINDINGS: The bowel gas pattern is non-obstructive. There is no organomegaly. Renal shadows are partially obscured by bowel gas. Right nephrolithiasis redemonstrated. There are 2 regions foci noted projecting about the right abdomen at the level of the inferior endplate L2 and at the L2-L3 disc space. The more distal focus measures 6 mm in the proximal one measures [address], only one ureteral calculus with identified at approximately the L2- L3 level. No significant migration from comparison. No pneumoperitoneum or pneumatosis. Degenerative changes of the pelvis, hips and spine. No fracture. IMPRESSION: 1. There are two radiodense foci noted about the right upper abdomen adjacent to the L2-L3 level suggestive of ureteral calculi measuring 4 and 6 mm re spectively. No significant distal migration from yesterday's exam. 2. Right nephrolithiasis redemonstrated. Electronically signed by: Antwan Kong M.D. 03/22/2019 6:34 PM Blood Pressure Blood Pressure Findings: Elevated blood pressure Blood Pressure Disposition: further management by hospitalist MDM Narrative This is a 64-year-old male who presents to the emergency department with a chief complaint of continued renal colic pain as well as the case yesterday. The patient was seen yesterday and had a CT scan that revealed a proximal right ureteral stone that was 6 mm x 4 mm. The patient was sent home on Flomax as well as Percocet and continued having pain. He contacted his urologist today and they recommended that he come in to the hospital for pain management and intervention. The patient did not need any pain medication when I saw him specifically. He has taken his Percocet recently. He has not had any fevers. His CBC was normal. X-ray reveals a 6 mm stone in the right upper abdomen consistent with the CT scan that was done yesterday. The patient will be seen by the hospitalist service for further inpatient evaluation and urology intervention tomorrow. Impression & Plan Renal colic on right side, Acute renal insufficiency The scribe's documentation has been prepared under my direction and personally reviewed by me in its entirety. I confirm that the note above accurately reflects all work, treatment, procedures, and medical decision making performed by me.
[2019-03-22 19:15] LABS: Appearance Urine Clear (Clear); Color Urine Orange; Ictotest Urine Negative (Negative)
[2019-03-22 19:16] LABS: Protein Urine Positive (Negative)
[2019-03-22 19:24] LABS: Bacteria Urine 1+ (Negative)
[2019-03-22] MEDS ORDERED: ONDANSETRON INJ 2 MG/ML 2 ML VIAL ONE (19:25)
[2019-03-22] MEDS ORDERED: DEXTROSE 50% 50 ML SYRINGE IV PRN (19:42)
[2019-03-22] MEDS ORDERED: CARBOHYDRATES FOR HYPOGLYCEMIA PO PRN (19:42)
[2019-03-22] MEDS ORDERED: HYDROmorphone INJ 0.5 MG/0.5 ML SYR IV PRN (19:42)
[2019-03-22] MEDS ORDERED: GLUCAGON FOR INJ 1 MG VIAL SQ PRN (19:42)
[2019-03-22] MEDS ORDERED: cloNIDine HCl 0.1 MG TAB PO PRN (19:42)
[2019-03-22] MEDS ORDERED: POLYETHYLENE (MIRALAX) 17 GM PACK PO PRN (19:42)
[2019-03-22] MEDS ORDERED: GLUCOSE 10 TABS/TUBE PO PRN (19:42)
[2019-03-22] MEDS ORDERED: GLUCOSE 40% GEL 15 GM TUBE PO PRN (19:42)
[2019-03-22] MEDS ORDERED: PROMETHAZINE HCL 12.5 MG in SODIUM CHLORIDE 0.9% 50 ML IV PRN (19:42)
[2019-03-22] MEDS: SODIUM CHLORIDE 0.9% 1000ML 1,000 ML IV SCH (20:42)
[2019-03-22] MEDS ORDERED: INSULIN ASPART 100 UNITS/ML 3 ML PEN SC SCH (21:00)
--- OUTSIDE RECORDS SUMMARY | 2019-03-22 23:41 | External Medical Summary | Continuity of Care Document ---
:1955 Author Name Ashlyn Jiménez, Provider Address Unavailable Unavailable , Care Team Providers Name Role Phone Gee [email or web address] Gil Sifuentes II, DO Unavailable 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 Start: 25-Feb-2017 Refills: 0 Aspirin 81 MG Oral Tablet Delayed Release; TAKE 1 TABLET CLAYTON LY. Start: 25-Feb-2017 Refills: 0 Atorvastatin Calcium 10 MG Oral Tablet Refills: 0 Ketorolac Tromethamine 10 MG Oral Tablet ; TAKE 1 TABLET 3 TIMES DAILY AFTER MEALS. DO Gil Sifuentes II Start: 22-Oct-2017 Quantity: 9 Refills: 0 Procedures History of Tonsillectomy Status: Complet ed History of Cholecystectomy Status: Compl eted Immunizations Immunizations not documented Family History Father Family history of hypertension (V17.49) (Z82.49) Status: Act [place] Family history of cardiac disorder (V17.49) (Z82.49) Status: Active Family history of diabetes mellitus (V18.0) (Z83.3) Status: Active Mother Family history of cardiac disorder (V17.49) (Z82.49) Status: Active Family history of diabetes mellitus (V18.0) (Z83.3) Status: Active Family history of malignant neoplasm of breast (V16.3) (Z80. 3) Status: Active Social History - Smoking Status Never smoker Plan of Treatment Planned Encounters Appointment; Gee Hernandez M.D. Start: 16-Sep-2019 11:40 Request Planned Observations Planned Goals not documented Results In-House UA (Urology) (Pending) Laboratory: In House Commen ts: CTY aware 11-Mar-2019 10:27 VOID, CC, CATH CC Turbid, Clear, Hazy Clear Gluc 0 Prot 0 Nitrate 0 Leuk 0 Blood Trace (Abnormal) pH 5.0 Encounters Appointment; Gee Hernandez M.D. 11-Mar-2019 10:10 Encounter Diagnosis: Problem not documented Appointment; Gee Hernandez M.D. 18-Feb-2019 10:55 Encounter Diagnosis: Problem not documented Appointment; Gee Hernandez M.D. 01-Oct-2018 9:00 Encounter Diagnosis: Problem not documented Appointment; Gee Hernandez M.D. 16-Jul-2018 11:30 Encounter Diagnosis: Problem not documented Appointment; Gee Hernandez M.D. 07-Jul-2018 9:00 Encounter Diagnosis: Problem not documented Appointment; Gee Hernandez M.D. 11-Jun-2018 9:00 Encounter Diagnosis: Problem not documented Appointment; Gee Hernandez M.D. 02-Apr-2018 15:20 Encounter Diagnosis: Problem not documented Appointment; Gil Sifuentes II, DO 25-Dec-2017 14:30 Encounter Diagnosis: Problem not documented Appointment; Gil Sifuentes II, DO 26-Nov-2017 9:30 Encounter Diagnosis: Problem not documented Appointment; Urology, Room 8 26-Nov-2017 9:15 Encounter Diagnosis: Problem not documented Appointment; Gil Sifuentes II, DO 13-Nov-2017 10:00 Encounter Diagnosis: Problem not documented Appointment; Urology, Nursing Station 29-Oct-2017 10:30 Encounter Diagnosis: Problem not documented Appointment; Gil Sifuentes II, DO 22-Oct-2017 10:50 Encounter Diagnosis: Problem not documented Appointment; Gee Hernandez M.D. 02-Jul-2017 11:30 Encounter Diagnosis: Problem not documented Appointment; Gee Hernandez M.D. 16-Sep-2019 11:40 Encounter Diagnosis: Problem not documented
[2019-03-23] MEDS: ONDANSETRON INJ 2 MG/ML 2 ML VIAL IV PRN ×2 (01:38→10:47)
[2019-03-23] MEDS: SODIUM CHLORIDE 0.9% 1000ML 1,000 ML IV SCH ×4 (02:54→22:17)
[2019-03-23] MEDS ORDERED: Nursing to Pharmacy Communication ONE ×2 (03:03→21:54)
[2019-03-23] MEDS: INSULIN ASPART 100 UNITS/ML 3 ML PEN SC SCH ×3 (06:04→18:30)
[2019-03-23 07:20] LABS: BUN Creatinine Ratio 11.9 (10-20); Calcium 8.2 mg/dl (8.5-10.1); Est GFR (African American) 74.9; Est GFR (Non-African American) 64.6; Potassium 4.4 mmol/L (3.5-5.1)
[2019-03-23 07:41] LABS: Estimated Average Glucose 154 mg/dl
[2019-03-23] MEDS: ACETAMINOPHEN 325 MG TAB PO STA ×2 (08:02→08:13)
[2019-03-23] MEDS: TAMSULOSIN HCL 0.4 MG CAP PO SCH (08:03)
--- NOTE | 2019-03-23 08:11 | Urology Consultation ---
Date of Consultation March 23, 2019 Assessment & Plan (1) Renal colic on right side: (2) Kidney stones: 64yo M with 6mm R proximal ureteral stone, mild hydro. Discussed options with patient and . Continues to become nauseated with any movement, position changes this afternoon. Stone visible on KUB, however with his body habitus I am concerned he will not be a candidate for ESWL. He has had URS in the past, concerned about bladder spasms. He does have BPH - may require catheter s/p URS 2 years ago. He understands we may not be able to treat his stone today, he is agreeable to stenting acutely. Findings reviewed with Dr. Jackson and Dr. Bernstein. Given his continued nausea the context of an obstructing 6mm prox ureteral stone, will proceed with OR for cysto, Right RPG and Right stent placement. Risks and benefits to be reviewed with patient by Dr. Hernandez or Dr. Bernstein OR notified. Preoperative CXR and EKG ordered. Will cover with IV Ciprofloxacin preoperatively. Keep NPO, Maintain IV Fluids. Will likely be after 5pm today. Please contact our service urgently if patient develops a fever >101F. History of Present Illness Reason for Consultation: Stones Requesting Physician: Dr. Crews Attending Physician: Marvin Crews, History of Present Illness 64yo M with known nephrolithiasis and BPH s/p TURP presents for persistent R sided flank pain and nausea Evaluated yesterday in ED, diagnosed with 6mm proximal R ureteral stone, mild hydro. Cr 1.7 at that time. Nausea last night, emesis a few times. No dysuria or hematuria. Denies fevers/chills. Allergies Allergy/AdvReac Type Severity Reaction Status Date / Time No Known Allergies Allergy Unverified 03/21/19 09:12 Home Medications Home Medications Medication Instructions Recorded Confirmed Type aspirin, buffered 162.5 mg PO DAILY 03/21/19 03/22/19 History atorvastatin 10 mg PO DAILY 03/21/19 03/22/19 History cyanocobalamin (vitamin B-12) 1,000 mcg PO DAILY 03/21/19 03/22/19 History [Vitamin B-12] [id number]-Mn 2 tab PO DAILY 03/21/19 03/22/19 History lisinopril 2.5 mg PO DAILY 03/21/19 03/22/19 History metformin 1,000 mg PO BID 03/21/19 03/22/19 History oxycodone-acetaminophen [Percocet] 1 tab PO Q6H PRN #30 tab 03/21/19 03/22/19 Rx tadalafil 5.5 mg PO DAILY 03/21/19 03/22/19 History tamsulosin [Flomax] 0.4 mg PO DAILY #10 cap 03/21/19 03/22/19 Rx Patient History Medical History Kidney stones (Acute) Enlarged prostate (Chronic) Diabetes (Chronic) BPH loc w/o ur obs/LUTS Urinary tract infection (Acute) Family History Other Family history non-contributory Social History Preferred Language: Frisian Communication Ability: Effective Agronomy Professor Required: No Beliefs That Will Affect Care: None marital status: Current Living Situation: Spouse current occupational status: employed Other Information That Helps Us Care for You: No Feels Safe at Home: Yes Safety Concerns: Feels Safe At This Time Smoking Status: Former smoker Do You Dip or Chew Tobacco: Yes Second Hand Exposure: No Tobacco Cessation Education Requested by Patient: No Hx Alcohol Use: Yes Hx Substance Use: No Review of Systems Constitutional: no fever, no chills and no sweats Eyes: no blind spots and no diplopia Ear, Nose, Mouth, Throat: no ear pain and no tinnitus Respiratory: no cough and no snoring Cardiovascular: no chest pain Gastrointestinal: no abdominal pain, no nausea and no vomiting Genitourinary: + flank pain; no hematuria Musculoskeletal: no back pain and no swelling Integumentary: no rash and no lesions Neurologic: no falls and no numbness Psychiatric: no suicidal ideation Endocrine: no polydipsia and no polyphagia Hematologic / Lymphatic: no coagulopathy Physical Exam Constitutional: + obese; no acute distress Eyes: no nystagmus ENMT: Ears: no hearing impairment Neck: trachea midline Respiratory: no respiratory distress and does not use accessory muscles Cardiovascular: Vessels: no JVD Chest (Breasts): Breast: + abnormal inspection of breast Gastrointestinal (Abdomen): Inspection/Auscultation: abdomen not distended and no abdominal edema Percussion/Palpation: abdomen soft; abdomen nontender Musculoskeletal: Head/Neck/Chest: normocephalic and head atraumatic Skin: no rashes and no ulcers Neurologic: patellar DTR's 2+ bilat, sensation intact Psychiatric: Orientation: alert and oriented x 3 Eye Contact: good eye c ontact Genitourinary: + CVA tenderness Lymphatic: no lymphadenopathy Results & Data Vital Signs (Past 12 Hours) Vital Signs Temp Pulse Resp BP Pulse Ox 03/23/19 07:55 36.9 C 73 18 176/78 H 95 03/22/19 23:55 160/78 H 03/22/19 23:47 36.5 C 74 18 181/78 H 97
[2019-03-23] MEDS ORDERED: ACETAMINOPHEN 325 MG TAB ONE (08:13)
[2019-03-23] MEDS: HYDROmorphone INJ 1 MG/ML SYRINGE IV PRN ×2 (10:47→14:42)
--- NOTE | 2019-03-23 13:10 | XRay Report ---
XR chest 1V portable HISTORY: preop COMPARISON: Chest 11/27/2017. FINDINGS: There are low lung volumes. No pneumothorax. No pleural effusions. There is mild central pu lmonary vascular congestion without overt edema. No focal lung consolidations to suggest pneumonia. M ild cardiomegaly may be accentuated by the low lung volumes. IMPRESSION: Low lung volumes with mild central pulmonary vascular congestion. Electronically signed by: Gorge Rodriguez M.D. 03/23/2019 1:09 PM
--- NOTE | 2019-03-23 14:58 | Anesthesiology Consultation ---
Date of Service March 23, 2019 Assessment & Plan Chart Review Chart Review: Acceptable Risk for Surgery and Patient NOT seen in Pre Admission Testing Consults Requested none ASA ASA3 Proposed Anesthesia Anesthesia Type: General History Surgery Operation Date: 03/23/19 15:40 Proposed Procedures p Cystoscopy Right Retrogradepyelogram, Stent Placement - Steven salazar MD Height/Weight Height: 5 ft 9 in Weight: 135.9 kg Allergies Allergy/AdvReac Type Severity Reaction Status Date / Time No Known Allergies Allergy Unverified 03/21/19 09:12 Medications Home Medications Medication Instructions Recorded Confirmed Last Taken aspirin, buffered 162.5 mg PO DAILY 03/21/19 03/22/19 03/22/19 atorvastatin 10 mg PO DAILY 03/21/19 03/22/19 03/22/19 cyanocobalamin (vitamin B-12) 1,000 mcg PO DAILY 03/21/19 03/22/19 03/21/19 [Vitamin B-12] [id number]-Mn 2 tab PO DAILY 03/21/19 03/22/19 03/22/19 lisinopril 2.5 mg PO DAILY 03/21/19 03/22/19 03/22/19 metformin 1,000 mg PO BID 03/21/19 03/22/19 03/22/19 oxycodone-acetaminophen [Percocet] 1 tab PO Q6H PRN #30 tab 03/21/19 03/22/19 03/22/19 tadalafil 5.5 mg PO DAILY 03/21/19 03/22/19 03/21/19 tamsulosin [Flomax] 0.4 mg PO DAILY #10 cap 03/21/19 03/22/19 03/21/19 Active Medications Generic Name Dose Route Start Last Admin Trade Name Freq PRN Reason Stop Dose Admin Hydromorphone HCl 1 mg 03/22/19 19:42 03/23/19 14:42 Dilaudid IV 04/05/19 19:41 1 mg Q4H PRN Administration Pain Sodium Chloride 1,000 mls @ 150 mls/hr 03/22/19 19:42 03/23/19 09:30 Nss 1000ml IV 04/21/19 19:41 150 mls/hr .Q6H40M [place] Administration Promethazine HCl 12.5 mg/ 50.5 mls @ 202 mls/hr 03/22/19 19:42 03/23/19 03:56 Sodium Chloride IV 04/21/19 19:41 Infused Q6H PRN Infusion Nausea And Vomiting Insulin Aspart 0 units 03/23/19 06:00 03/23/19 13:16 Novolog Flexpen SC 04/22/19 05:59 1 units Q6 [place] Administration Ondansetron HCl 4 mg 03/22/19 19:42 03/23/19 10:47 Zofran IV 04/21/19 19:41 4 mg Q6H PRN Administration Nausea Tamsulosin HCl 0.4 mg 03/23/19 09:00 03/23/19 08:03 Flomax PO 04/22/19 08:59 0.4 mg DAILY [place] Administration NPO Date Last Intake of Fluids: 03/22/19 Time Last Intake of Fluids: 23:59 Date Last Intake of Solids: 03/22/19 Past Medical History Medical History Kidney stones (Acute) Enlarged prostate (Chronic) Diabetes (Chronic) BPH loc w/o ur obs/LUTS Urinary tract infection (Acute) Morbid obesity Exercise / Class Metabolic Activity III < 4 Walking/Shop/Light housework Past Family History Family History Other Family history non-contributory Past Anesthesia History No Hx of Anesthesia Complications and No Family Hx of Anesthesia Complications History of PONV No Hx of PONV, No Family Hx of PONV and No Hx of Motion Sickness Social History Smoking Status: Former smoker Do You Dip or Chew Tobacco: Yes Hx Alcohol Use: Yes alcohol intake frequency: holidays/special occasions only Hx Substance Use: No substance use type: does not use Physical Exam Vital Signs Last Vital Signs Temp 36.9 C 03/23/19 07:55 Pulse 73 03/23/19 07:55 Resp 18 03/23/19 07:55 BP 176/78 H 03/23/19 07:55 Pulse Ox 95 03/23/19 07:55 Testing Laboratory Results 03/22/19 18:00 03/23/19 06:22 Hemoglobin A1c 7.0 % (4.5-5.6) H 03/23/19 06:22 Urine Color [place] 03/22/19 18:50 Urine Appearance Clear (Clear) 03/22/19 18:50 Urine pH (4.5-7.5) 03/22/19 18:50 Ur Specific [place] 1.020 (1.000-1.030) 03/22/19 18:50 Urine Protein Positive (Negative) H 03/22/19 18:50 Urine Glucose (UA) (Negative) 03/22/19 18:50 Urine Ketones (Negative) 03/22/19 18:50 Urine Nitrite (Negative) 03/22/19 18:50 Ur Leukocyte Esterase (Negative) 03/22/19 18:50 Urine RBC 5-10 /hpf (0-4) H 03/22/19 18:50 Urine WBC 10-30 /hpf (0-5) H 03/22/19 18:50 Ur Epithelial Cells 5-10 /lpf (0-5) H 03/22/19 18:50 03/22/19 18:50 Urine Culture - Preliminary Urine,Clean Catch No growth - Less than 1,000 colonies/mL, Final report to follow. 03/23/19 03/23/19 12:08 05:45 POC Glucose 152 H 162 H
[2019-03-23] MEDS ORDERED: CIPROFLOXACIN 400MG / 200ML D5W IV ONE (15:57)
--- NOTE | 2019-03-23 16:54 | Hospitalist Progress Note ---
Date of Service March 23, 2019 Assessment & Plan (1) Kidney stones: - R 6 cm calculi with associated mild hydronephrosis with plans for stent placement on 03/23 - Pre-operative Cipro - Ucx currently with no growth - NSS at 150 mL/hr and likely can reduce pending procedure/oral intake - Flomax 0.4 mg daily - Pain and nause control PRN - Urology following - appreciate input Present on Admission?: Yes (2) Acute renal insufficiency: - Cr increased to 1.7 which baseline appears around 0.9-1.1 - likely combination of prerenal due to nausea/vomiting and some obstructive - currently resolved today with IV hydration - Continue to monitor labs Present on Admission?: Yes (3) Diabetes: - Hold Metformin and cover with SSI while in-house; A1c 7 Present on Admission?: Yes (4) DVT prophylaxis: - SCDs Disposition: Surgical procedure today and will monitor for pain control today; possible D/C next 1-2 days Subjective Reports feeling well overall. Pain is under control but no evidence of passed stones in urine. Reports he had significant pain/spasms with his previous stent and also urinary retention after procedure requiring Harvey catheter He denies feeling fevered but states he does feel warm to touch to her Review of Systems Constitutional: no fever and no chills Ear, Nose, Mouth, Throat: no sore throat and no dysphagia Respiratory: no cough and no dyspnea Cardiovascular: no chest pain and no lightheadedness Gastrointestinal: + constipation; no abdominal pain, no nausea, no vomiting and no diarrhea/loose stools Genitourinary: no dysuria, no urinary frequency and no urinary hesitancy Musculoskeletal: no body aches Integumentary: no rash Physical Exam Constitutional: no acute distress Eyes: + anicteric sclerae; no nystagmus ENMT: Ears: no hearing impairment Neck: normal visual inspection and trachea midline Respiratory: normal respiratory effort, lungs clear to auscultation Auscultation: + diminished lung sounds (bases b/l) Cardiovascular: Rate/Rhythm: regular rate and regular rhythm Vessels: no JVD Chest (Breasts): Breast: + abnormal inspection of breast Gastrointestinal (Abdomen): Inspection/Auscultation: normal bowel sounds; abdomen not distended and no abdominal edema Percussion/Palpation: abdomen soft; abdomen nontender Musculoskeletal: Head/Neck/Chest: normocephalic, head atraumatic and neck supple Extremities: no cyanosis and no clubbing Skin: no rashes, warm and dry Neurologic: moves all extremities Psychiatric: Orientation: alert and oriented x 3 Eye Contact: good eye cont act Affect: + flat affect Genitourinary: no CVA tenderness Results & Data Vital Signs (Past 12 Hours) Vital Signs Temp Pulse Resp BP Pulse Ox 03/23/19 15:03 37.4 C 83 18 183/81 H 92 03/23/19 07:55 36.9 C 73 18 176/78 H 95
[2019-03-23] MEDS ORDERED: ATROPINE SULFATE 0.1 MG/ML 10ML SYR IV PRN (18:47)
[2019-03-23] MEDS ORDERED: ePHEDrine sulfate 50 MG/ML AMP IV PRN (18:47)
[2019-03-23] MEDS ORDERED: fentaNYL citrate 100 MCG/2 ML VIAL IV PRN (18:47)
[2019-03-23] MEDS ORDERED: fentaNYL citrate 100 MCG/2 ML VIAL ONE ×2 (19:03→19:52)
--- NOTE | 2019-03-23 19:12 | History & Physical Bridge Note ---
Date of Service March 23, 2019 History & Physical Bridge Note I have examined the patient, reviewed the History & Physical and in the interval since the performance of the History & Physical I have noted the following changes of clinical significance: no changes noted
[2019-03-23] MEDS ORDERED: SCOPOLAMINE 1.5 MG TDSY ONE (19:14)
[2019-03-23] MEDS ORDERED: LIDOCAINE HCL 2% 2 ML VIAL/AMP(20MG/ML) INFIL ONE (19:30)
[2019-03-23] MEDS ORDERED: PROPOFOL IV EMULSION 10 MG/ML 20 ML VIAL IV ONE (19:30)
[2019-03-23] MEDS ORDERED: ONDANSETRON INJ 2 MG/ML 2 ML VIAL ONE (19:52)
[2019-03-23] MEDS ORDERED: DEXAMETHASONE SOD INJ 4 MG/ML VIAL ONE (19:53)
--- NOTE | 2019-03-23 19:53 | Post Operative Brief Note ---
Immediate Post Op Note v1 Date of Surgery March 23, 2019 Pre & Post Diagnosis Operation Date: 03/23/19 15:40 Pre-Op Diagnosis: Right ureteral hydroneprhosis Post-Op Diagnosis: Right ureteral stent Procedure Operation Date: 03/23/19 15:40 Actual Procedures p Cystoscopy Right Retrogradepyelogram, Stent Placement(Right) - Moiz Bernstein MD Surgeon Moiz Bernstein MD Surgical Technologist none Estimated Blood Loss 5 Findings Consistent with Post-Op Diagnosis
--- NOTE | 2019-03-23 20:06 | Fluoroscopy Report ---
FL retrograde includes kub CLINICAL HISTORY: RT CYSTO STENT COMPARISON STUDY: None FLUOROSCOPY TIME: 11 seconds NUMBER OF FLUOROSCOPIC IMAGES: 4 FINDINGS: Image intensifier utilized for right-sided stent placement IMPRESSION: Image intensifier utilization for stent placement The above report was generated using voice recognition software. It may contain grammatical, syntax or spelling errors. Electronically signed by: Ravi Boyd M.D. 03/23/2019 8:04 PM
--- NOTE | 2019-03-23 20:36 | Anesthesiology Progress Note ---
Date of Service March 23, 2019 Anesthesia Post Procedure Vital Signs Vital Signs: Temp Pulse Resp BP Pulse Ox 03/23/19 20:25 77 19 168/73 H 96 03/23/19 20:15 79 20 162/72 H 97 03/23/19 20:07 37.1 C 82 18 172/75 H 98 03/23/19 15:03 37.4 C 83 18 183/81 H 92 03/23/19 07:55 36.9 C 73 18 176/78 H 95 03/22/19 23:55 160/78 H 03/22/19 23:47 36.5 C 74 18 181/78 H 97 Pain Intensity Right Flank: Pain Intensity: 0 Head: Pain Intensity: 0 Transfer of Care Handoff Completed per policy Notes Mental Status: alert / awake / arousable Patient Amnestic to Procedure: Yes Nausea / Vomiting: adequately controlled Pain: adequately controlled Airway Patency, RR, SpO2: stable & adequate BP & HR: stable & adequate Hydration State: stable & adequate Anesthetic Complications: no major complications apparent and Pt Satisfied with anesthetic care
--- NOTE | 2019-03-24 00:43 | Operative Report ---
DATE OF OPERATION: 03/23/2019 PREOPERATIVE DIAGNOSIS: Right ureteral stones. POSTOPERATIVE DIAGNOSES: Right ureteral stones with renal colic. PROCEDURE PERFORMED: Cystoscopy and right stent. INDICATIONS: The patient is a 64-year-old male with a history of previous stones who presented with severe right flank pain. The patient had 10-30 white cells in his urine and bacteria as well and we discussed the options and agreed to proceed with stent placement on the right. The stones were in proximal ureter and did not think it was a good idea to proceed with ureteroscopy with pyuria and bacteria. The patient also said he felt he had been having fever at some point, although the chart does not show that. DESCRIPTION OF THE PROCEDURE: The patient was taken to the cysto suite. He had Venodyne stockings placed. He had been given ciprofloxacin. He was placed in the dorsal lithotomy position and prepped and draped in usual sterile fashion. A 22-[place] cystoscope was passed per urethra. He had a large obstructing prostate but no strictures. Once inside the bladder, a 5-[place] open-ended catheter was passed into the right distal ureter and a retrograde was performed. It was difficult because of the size to clearly see the contrast, but I could see contrast going up, but I did not see going into the kidney. I then passed a Dual-Flex guidewire beyond the stones into the kidney and then passed a 5-[place] open-ended catheter over this and put some contrast into the renal pelvis. At this point, replaced the guidewire and removed the 5-[place] open-ended catheter and passed a 4.8-[place] 26 cm stent and it appeared that the proximal portion was in the renal pelvis and the distal portion was in the bladder. The patient was transferred to the recovery room in stable condition after the bladder was emptied. There was some bleeding from the cystoscopy in the area of the prostate. I attest to the content of the Intraoperative Record and any orders documented therein. Any exception s are noted below.
[2019-03-24] MEDS: SODIUM CHLORIDE 0.9% 1000ML 1,000 ML IV SCH (05:14)
[2019-03-24] MEDS ORDERED: CIPROFLOXACIN 400 MG/200 ML BAG IV SCH (06:00)
[2019-03-24] MEDS ORDERED: INSULIN ASPART 100 UNITS/ML 3 ML PEN SC SCH (07:30)
[2019-03-24 07:45] LABS: Hematocrit (blood only) 40.3 % (42-52); Hemoglobin 14.2 g/dL (14.0-18.0); Mean Corpuscular Hgb Conc 35.2 g/dL (32-36); Mean Platelet Volume 10.1 fL (7.4-10.4); Platelet Count 110 K/uL (130-400); RDW Coefficient of Variation 13.1 % (11.5-14.5); RDW Standard Deviation 43.9 fL (36.4-46.3); Red Blood Count 4.38 M/uL (4.7-6.1); White Blood Count 7.13 K/uL (4.8-10.8)
[2019-03-24] MEDS: ONDANSETRON INJ 2 MG/ML 2 ML VIAL IV PRN (07:50)
[2019-03-24] MEDS: TAMSULOSIN HCL 0.4 MG CAP PO SCH (07:54)
--- NOTE | 2019-03-24 07:54 | Urology Progress Note ---
Date of Service March 24, 2019 Assessment & Plan (1) Kidney stones: s/p stent - discussed options - we will try to scheduled for ESWL on Friday - d/c home today Subjective pod #1 s/p cysto, stent - doing ok - pain improved - still with some urgency - hungry Physical Exam Physical Exam: NAD AFVSS AAOx3 no resp distress non-tachy abd soft, no cva tenderness no edema Results & Data Vital Signs (Past 12 Hours) Vital Signs Temp Pulse Resp BP Pulse Ox 03/24/19 03:45 36.5 C 54 L 20 165/83 H 97 03/23/19 23:59 37.2 C 67 18 177/79 H 93 03/23/19 23:37 37.3 C 64 20 156/79 H 96 03/23/19 22:08 36.9 C 69 18 159/78 H 96 03/23/19 21:31 37.5 C 69 18 159/63 H 96 03/23/19 21:00 37.4 C 70 17 156/78 H 94 03/23/19 20:42 37.5 C 74 18 164/72 H 95 03/23/19 20:35 73 23 160/72 H 95 03/23/19 20:25 77 19 168/73 H 96 03/23/19 20:15 79 20 162/72 H 97 03/23/19 20:07 37.1 C 82 18 172/75 H 98
--- NOTE | 2019-03-24 08:10 | Communication Note ---
Date of Service: March 24, 2019 Please have patient report to [address] [place] [address] directly following discharge to sign paperwork for ESWL on Friday. He lives in [place]. Thank you!
[2019-03-24 08:21] LABS: Calcium 8.4 mg/dl (8.5-10.1); Creatinine Clr Calc Pharmacy 95.6 ml/min; Est GFR (African American) 86.3; Est GFR (Non-African American) 74.5; Potassium 4.1 mmol/L (3.5-5.1)
[2019-03-24] MEDS ORDERED: CIPROFLOXACIN 500 MG TAB PO STA (10:35)
--- NOTE | 2019-03-24 18:06 | Hospitalist Progress Note ---
Date of Service March 24, 2019 Assessment & Plan (1) Kidney stones: - R 6 cm calculi with associated mild hydronephrosis with plans for stent placement on 03/23 - Pre-operative Cipro - Ucx currently with no growth - NSS at 150 mL/hr and likely can reduce pending procedure/oral intake - Flomax 0.4 mg daily - Pain and nause control PRN - Urology following - appreciate input (2) Acute renal insufficiency: - Cr increased to 1.7 which baseline appears around 0.9-1.1 - likely combination of prerenal due to nausea/vomiting and some obstructive - currently resolved today with IV hydration - Continue to monitor labs (3) Diabetes: - Hold Metformin and cover with SSI while in-house; A1c 7 (4) DVT prophylaxis: - SCDs Disposition: Surgical procedure today and will monitor for pain control today; possible D/C next 1-2 days Physical Exam Constitutional: no acute distress Eyes: + anicteric sclerae; no nystagmus ENMT: Ears: no hearing impairment Neck: normal visual inspection and trachea midline Respiratory: normal respiratory effort, lungs clear to auscultation no re spiratory distress and does not use accessory muscles Auscultation: + diminished lung sounds (bases b/l) Cardiovascular: Rate/Rhythm: regular rate and regular rhythm Vessels: no JVD Chest (Breasts): Breast: + abnormal inspection of breast Gastrointestinal (Abdomen): Inspection/Auscultation: normal bowel sounds; abdomen not distended and no abdominal edema Percussion/Palpation: abdomen soft; abdomen nontender Musculoskeletal: Head/Neck/Chest: normocephalic, head atraumatic and neck supple Extremities: no cyanosis and no clubbing Skin: no rashes, warm and dry no rashes and no ulcers Neurologic: patellar DTR's 2+ bilat, sensation intact moves all extremities Psychiatric: Orientation: alert and oriented x 3 Eye Contact: good eye contact Affect: + flat affect Genitourinary: no CVA tenderness Lymphatic: no lymphadenopathy Results & Data Vital Signs (Past 12 Hours) Vital Signs Temp Pulse Resp BP Pulse Ox 03/24/19 13:29 37.1 C 52 L 18 144/72 H 94 03/24/19 11:56 37.1 C 52 L 18 144/72 H 94 03/24/19 08:12 36.6 C 52 L 18 168/77 H 97
--- NOTE | 2019-03-24 18:16 | Discharge Summary ---
Date of Service March 24, 2019 Admission HPI Per Admitting Provider 64-year-old male with type 2 diabetes who was in the emergency department 1 day ago and found to have a 6 mm right renal stone with mild hydro-attempt to be treated with outpatient medication and failed here with pain nausea vomiting inability keep p.o. down including p.o. meds. Patient has right flank pain is no hematuria actively nauseous. He has had one stone in the past removed with lithotripsy laser lithotripsy by cystoscopy. Other than that he is generally fairly healthy has had no recent chest pain shortness of breath orthopnea range of bowel function but he does get nauseous with anesthesia Principal Diagnosis R Renal Calculi with Mild Hydronephrosis S/P Stent Discharge Exam Constitutional no acute distress and not ill appearing Eyes + anicteric sclerae ENMT Ears: no hearing impairment Neck normal visual inspection and trachea midline Respiratory normal respiratory effort, lungs clear to auscultation Cardiovascular Rate/Rhythm: regular rate and regular rhythm Heart Sounds: no murmur Vessels: no JVD Chest (Breasts) Breast: + abnormal inspection of breast Gastrointestinal (Abdomen) Inspection/Auscultation: normal bowel sounds; abdomen not distended Percussion/Palpation: abdomen soft; abdomen nontender Musculoskeletal Head/Neck/Chest: normocephalic, head atraumatic and neck supple Extremities: no cyanosis and no clubbing Skin no rashes, warm and dry Neurologic moves all extremities Psychiatric A+Ox3, euthymic affect Genitourinary no CVA tenderness Discharge Data Allergies Allergy/AdvReac Type Severity Reaction Status Date / Time No Known Allergies Allergy Unverified 03/21/19 09:12 Consultations 03/22/19 18:45 ED Decision to Admit Stat 03/22/19 19:42 Consult Urology Routine Procedures Performed Operation Date: 03/23/19 15:40 Actual Procedures p Cystoscopy Right Retrograde pyelogram, Stent Placement(Right) - Moiz Bernstein MD Ordered Studies 03/23/19 14:00 FL retrograde includes kub Routine Hospital Course (1) Kidney stones: - R 6 cm and 4 cm calculi with associated mild hydronephrosis with stent placement on 03/23 and planning on ESWL on 03/26 - Ucx currently with no growth - However, will cover with Ciprofloxacin 500 mg BID until ESWL - Flomax 0.4 mg daily - Pain and nausea control PRN; Rx provided for Tramadol and Zofran; Will also prescribed Oxybutynin TID PRN and advised to monitor for urinary retention -- Reports he was only have to fill a few pills of his Percocet prescribed in the ED - Discussed options to prevent constipation and reports multiple medications at home/OTCs he has access too - Urology following - discussed with [employer] - planning to report to Urology office after discharge and ESWL on Friday (2) Acute renal insufficiency: - Cr increased to 1.7 on admission which baseline appears around 0.9-1.1 - likely combination of prerenal due to nausea/vomiting and some obstructive - currently resolved and at baseline (3) Diabetes: - Continue Metformin; A1c 7 Total Time Total Time Spent Total Time Spent (In Minutes): Greater than 30 minutes Discharge Plan Discharge Items Patient Disposition: Home - Self-Care Reason For Visit: RENAL COLIC,HYDRONEPHROSIS Discharge Diagnosis: Renal Calculi with Stent Discharge Goals: Decrease discomfort, Improve disease control and Prevent disease Activity: Resume your previous activity Non-emergency contact: Primary Care Provider Call non-emergency contact if: you have any medication questions, your symptoms worsen and your pain is not controlled Follow-up/Referrals: [facility]] (Please, follow up at [facility]. This office is located at [address] in [place]. If you need to change this appointment, call the office at [phone].) oCrey Gill [Primary Care Provider] - 03/31/19 8:45 am (Please, follow up with Dr. Corey Gill on FridayMarch 31 at 8:45 am. *If you need to change this appointment, call the office at [phone].) Diet: Carb Consistent or DM2 Addtl Provider Instructions: Kidney Stone: - You have a 6 cm and 4 cm kidney stone and had a stent placed to help keep urine flowing. You are to go to the Urology office after discharge to do paperwork for the lithotripsy on Friday. ([address]) - We will finish a course of Ciprofloxacin. This is an antibiotics and will take this until you have your lithotripsy to prevent infection. Thankfully your urine culture currently does not show signs of infection. - Continue Flomax 0.4 mg daily - We will give you a prescription for pain medication and a medication to help that spasm/contraction feeling -- HOWEVER - OXYBUTYNIN CAN CAUSE URINARY RETENTION. IF YOU NOTICE YOUR URINE STREAM IS REDUCED STOP TAKING THIS MEDICATION!!! - For constipation you can take Colace (Docusate Sodium) 100 mg twice a day. This is a stool softener and can be taken each day if necessary. You can use Senna or Senokot as well. Miralax can be used and is safe to use once or twice a day. Do recommend to walk and keep moving to help keep the bowels moving and reduce risk of constipation. Elevated Kidney Number: - Due to the stone and some dehydration. Your kidney number jumped to 1.7 and we like to see this below 1.4. This has now stayed normal for a couple days. It is currently at 1.04 which is great. - The velasco is to just keep hydrated. Try and keep your urine a pale yellow and clear. You may have some blood-tinged urine since you have a stent placed which is normal. Urology Instructions: Please take all medications as prescribed and keep all follow-ups as scheduled. Please call [facility] at [phone] with any questions, concerns or need to reschedule appointments for any reason. We are happy to assist you. While you have a ureteral stent in place: Some discomfort is normal. Certain movements may trigger pain or a feeling that you need to urinate. You may also feel mild soreness or pressure before or during urination. These symptoms should go away a few days after the stent is removed. Your urine may be slightly pink or red. This is due to bleeding caused by minor irritation from the stent. This may happen on and off while you have the stent, it is not harmful and is to be expected. Medication to help minimize discomfort or bladder spasms, or to prevent infection may be prescribed. Take this as directed. Drink plenty of fluids to help flush out your urinary tract. How long will you need a stent? An appointment should already be made for you for stent removal, unless directed otherwise. The stent is often taken out after the blockage in the ureter is treated or the ureter has healed. This may take 1-2 weeks, or longer. If a stent is needed for a longer period of time, it may need to be exchanged every few months. Likely prior to your followup appointment you will be asked to get an X-ray, please complete this the night before or morning of your appointment. When to call [facility] at [phone]: Your urine contains heavy blood clots You are constantly leaking urine Fever of 101F or higher, chills, nausea, or vomiting Your pain is not relieved with medication The end of the stent comes out of your urethra Prescriptions: New tramadol 50 mg tablet 50 mg PO Q6H PRN (Reason: pain) 3 Days Qty: 12 RF: 0 oxybutynin chloride 5 mg tablet 5 mg PO Q8H PRN (Reason: bladder spasms) 3 Days Qty: 9 RF: 0 ondansetron HCl [Zofran] 4 mg tablet 4 mg PO Q6H PRN (Reason: nausea and vomiting) 3 Days Qty: 12 RF: 0 ciprofloxacin HCl 500 mg tablet 500 mg PO BID 5 Days Qty: 9 RF: 0 Continued metformin 500 mg tablet 1,000 mg PO BID RF: 0 atorvastatin 10 mg tablet 10 mg PO DAILY RF: 0 cyanocobalamin (vitamin B-12) [Vitamin B-12] 1,000 mcg Tablet 1,000 mcg PO DAILY RF: 0 aspirin, buffered 325 mg Tablet 162.5 mg PO DAILY RF: 0 lisinopril 2.5 mg tablet 2.5 mg PO DAILY RF: 0 tadalafil 2.5 mg Tablet 5.5 mg PO DAILY RF: 0 qeej-xaxsiu-gvsjfqbo-D3-C-Mn 500-400-667 mg-mg-unit Capsule 2 tab PO DAILY RF: 0 tamsulosin [Flomax] 0.4 mg capsule 0.4 mg PO DAILY Qty: 10 RF: 0 Discontinued oxycodone-acetaminophen [Percocet] 5-325 mg tablet 1 tab PO Q6H PRN (Reason: pain) Qty: 30 RF: 0 Stand-Alone Forms: Send the Trend/Other Patient Handouts: Blood Sugar Check, Lithotripsy Shock Wave, Stents Ureteral, Kidney Stones Risk Discharge Orders: Discharge Order (Routine); Ordered 03/24/19 Ordered By: Noelle Cesar Admission Data Admit Date/Time: 03/22/19 18:40 Attending Provider: Marvin Crews Admit Provider: Mars Simmons Primary Care Provider: Corey Gill Other Providers: Mars Simmons ; Steven Hernandez Service: Surgical Services Other Interventions: Discharge Summary Assessment (RN) Last Done: 03/24/19 13:29 Pending Studies at Discharge: No DC Date/Time DO NOT enter until pt leaves facility: 03/24/19 14:33
== END 2019-03-24 14:33 | disposition home or self-care (01) | DRG 694 ==
LOC: ED 17:05 → 3W 18:40 → SUATTDRO 18:40 → 3W 19:30

== ENCOUNTER 2019-12-20 04:45 | Observation (INO) ==
--- NOTE | 2019-12-07 11:48 | Anesthesiology Consultation ---
Date of Service December 07, 2019 Assessment & Plan (1) Encounter for pre-operative examination: Chart Review Chart Review: Patient seen in Pre Admission Testing Consults Requested prior medical records Teaching & Discussion Pre-Anesthesia Teaching/Discussion Notes: Instructed NPO after midnight before surgery,except medications with 15 cc of water. Medication instructions provided according to the PAT guidelines. Additional Notes 64 yo male scheduled for TURP with Dr. Hernandez in 2 weeks. Patient reports that he experienced multiple complications after his last anesthetic for ESWL at the surgery center. All follow-up for these complications was performed out in the [place] area as the patient lives in [place]. At this time, we will request records from his primary care provider, Bryant Couch and the endoscopist in [place]. We will need to review the records and discuss the case with Dr. Hernandez in order to develop an anesthetic plan. Briefly discussed multiple options with the patient including GA with an LMA, which he had tolerated in the past, as well as GA with an ETT, including possible awake intubation. We will need to contact the patient after gathering additional information to inform him of the surgical plan. Patient understands and is in agreement with this. Contact number is [phone]. History Surgery Operation Date: 12/20/19 09:45 Proposed Procedures p Transurethral Resection of Prostate - Steven Hernandez MD Height/Weight Height: 5 ft 9 in Weight: 130 kg Allergies Allergy/AdvReac Type Severity Reaction Status Date / Time No Known Drug Allergies Allergy Verified 12/03/19 09:07 Medications Home Medications Medication Instructions Recorded Confirmed Last Taken atorvastatin 10 mg PO QAM 03/21/19 12/03/19 03/25/19 21:00 cyanocobalamin (vitamin B-12) 1,000 mcg PO QPM 03/21/19 12/03/19 03/22/19 [Vitamin B-12] tknj-wamryr-skneqexq-D3-C-Mn 2 tab PO QAM 03/21/19 12/03/19 03/22/19 lisinopril 2.5 mg PO QAM 03/21/19 12/03/19 03/25/19 21:00 metformin 1,000 mg PO BID 03/21/19 12/03/19 03/25/19 19:30 aspirin 81 mg tablet,delayed 81 mg PO QAM 07/15/19 12/03/19 Unknown release tadalafil 5 mg PO QPM 12/03/19 12/03/19 Unknown Past Medical History Medical History Benign prostatic hyperplasia with urinary obstruction Diabetes (Chronic) History of kidney stones Hyperlipidemia Hypertension Morbid obesity Exercise / Class Metabolic Activity III < 4 Walking/Shop/Light housework Negative for chest pain or shortness of breath. Past Family History Family History Father Family history of diabetes mellitus Hypertension Cardiac disorder Brother Family history of diabetes mellitus Sister Family history of diabetes mellitus Mother Family history of diabetes mellitus Breast cancer Cardiac disorder Past Surgical History Surgical History History of open reduction and internal fixation (ORIF) procedure LEFT ARM; THE ORIF D/T ANOTHER FX Hx of cholecystectomy Hx of colonoscopy Hx of cystoscopy Hx of eye surgery FOR RETINAL PUCKER REPAIR Hx of lithotripsy Nausea and vomiting after administration of anesthetic agent Past Anesthesia History Other Difficulty intubating during prior ESWL case - felt to possibly be due to poor positioning on lithotropsy table. Attempt x 2 with glidescope without success. Required a 2 handed mask with oral airway in between attempts. After second attempt, LMA #5 placed easily and used for the case. Patient reports that after this, he had memory and cognitive problems that took months to resolve. He reports that he underwent cognitive testing at [facility]. In addition, he reports loss of sensation and absence taste in his tongue and difficulty swallowing. He underwent endoscopy in [place] in March of 2019 and was told they thought he may have aspirated under anesthesia. At this time, all symptoms have resolved. Social History Smoking Status: Former smoker tobacco type: smokeless tobacco Do You Dip or Chew Tobacco: No Smoking End Date: > 20YR Hx Alcohol Use: Yes Alcohol type: beer alcohol intake frequency: holidays/special occasions only Hx Substance Use: No substance use type: does not use Review of Systems Denies active symptoms of GERD currently. Physical Exam Vital Signs Last Vital Signs Temp 36.8 C 12/07/19 11:43 Pulse 57 L 12/07/19 11:43 Resp 20 01/14/20 11:43 BP 126/69 12/07/19 11:43 Pulse Ox 96 12/07/19 11:43 Constitutional + morbidly obese ENMT Mouth: no TMJ abnormality and oral opening not small Thyromental Distance: > or= 3.5 Finger Breadths Mallampati Class: I Neck normal visual inspection; neck extension not limited Respiratory normal respiratory effort Auscultation: lungs clear to auscultation bilaterally Cardiovascular Rate/Rhythm: regular rate and regular rhythm Heart Sounds: no murmur Vessels: no carotid bruit Neurologic moves all extremities Motor/Sensory: no sensory deficit Psychiatric Orientation: alert and oriented x 3 Testing Other Testing Electrocardiogram Date: 03/23/19 Findings: + NSR @ (70) Chest X-Ray Date: 03/23/19 Findings: + NAD
[2019-12-07 12:58] LABS: Basophils # (auto) 0.01 K/uL (0-0.2); Basophils % (auto) 0.1 %; Eosinophils # (auto) 0.21 K/uL (0-0.5); Eosinophils % (auto) 2.6 %; Hemoglobin 15.2 g/dL (14.0-18.0); Immature Granulocytes # (auto) 0.03 K/uL (0.00-0.02); Immature Granulocytes % (auto) 0.4 %; Lymphocytes # (auto) 1.65 K/uL (1.2-3.4); Lymphocytes % (auto) 20.6 %; Mean Corpuscular Hemoglobin 32.2 pg (25-34); Mean Corpuscular Hgb Conc 33.8 g/dL (32-36); Mean Corpuscular Volume 95.3 fL (80-100); Mean Platelet Volume 10.2 fL (7.4-10.4); Neutrophils % (auto) 66.3 %; Platelet Count 180 K/uL (130-400); Red Blood Count 4.72 M/uL (4.7-6.1)
[2019-12-07 12:59] LABS: Appearance Urine Clear (Clear); Bilirubin Urine Negative (Negative); Blood Urine Negative (Negative); Color Urine Yellow; Glucose Urine UA Negative (Negative); Ketones Urine Negative (Negative); Leukocyte Esterase Urine Negative (Negative); Nitrite Urine Negative (Negative); Protein Urine Negative (Negative); Specific Gravity Urine 1.023 (1.000-1.030); Urobilinogen Urine Negative (Negative)
[2019-12-07 13:12] LABS: BUN Creatinine Ratio 29.8 (10-20); Calcium 9.6 mg/dl (8.5-10.1); Creatinine Clr Calc Pharmacy 87.4 ml/min; Est GFR (African American) 79.8; Est GFR (Non-African American) 68.8; Potassium 4.5 mmol/L (3.5-5.1)
[2019-12-20] MEDS ORDERED: LR 15ML/HR IV SCH (06:00)
[2019-12-20] MEDS ORDERED: CIPROFLOXACIN 400 MG/200 ML BAG IV SCH (06:00)
[2019-12-20] MEDS ORDERED: DEXAMETHASONE SOD INJ 4 MG/ML VIAL ONE (06:39)
[2019-12-20] MEDS ORDERED: MIDAZOLAM HCL 1 MG/ML 2ML VIAL ONE (06:39)
[2019-12-20] MEDS ORDERED: LIDOCAINE HCL 2% 2 ML VIAL/AMP(20MG/ML) INFIL ONE (06:39)
[2019-12-20] MEDS ORDERED: PROPOFOL IV EMULSION 10 MG/ML 20 ML VIAL IV ONE ×4 (06:39→07:05)
[2019-12-20] MEDS ORDERED: fentaNYL citrate 100 MCG/2 ML VIAL ONE ×2 (06:39→08:22)
[2019-12-20] MEDS ORDERED: ONDANSETRON INJ 2 MG/ML 2 ML VIAL ONE (06:39)
[2019-12-20] MEDS ORDERED: NEOSTIGMINE METHYLSULFATE 5 MG/5 ML SYR ONE (06:40)
[2019-12-20] MEDS ORDERED: ROCURONIUM BROMIDE 10 MG/ML 5 ML VIAL ONE (06:40)
[2019-12-20] MEDS ORDERED: GLYCOPYRROLATE 0.2 MG/ML VIAL ONE (06:40)
[2019-12-20] MEDS ORDERED: ACETAMINOPHEN 1000 MG/100 ML IV IV ONE (06:53)
[2019-12-20] MEDS ORDERED: METOCLOPRAMIDE HCL INJ 5 MG/ML 2 ML VIAL ONE (07:09)
--- NOTE | 2019-12-20 07:10 | History & Physical Bridge Note ---
Date of Service December 20, 2019 History & Physical Bridge Note I have examined the patient, reviewed the History & Physical and in the interval since the performance of the History & Physical I have noted the following changes of clinical significance: no changes noted
[2019-12-20] MEDS ORDERED: fentaNYL citrate 100 MCG/2 ML VIAL IV PRN (07:18)
[2019-12-20] MEDS ORDERED: ATROPINE SULFATE 0.1 MG/ML 10ML SYR IV PRN (07:18)
[2019-12-20] MEDS ORDERED: ePHEDrine sulfate 50 MG/ML AMP IV PRN (07:18)
--- NOTE | 2019-12-20 07:18 | History & Physical Report ---
Date of Service December 20, 2019 Assessment & Plan (1) BPH loc w/o ur obs/LUTS: TURP 23hr obs stay History of Present Illness Primary Care Provider: Corey Gill Pt with BPH and symptoms - very large prostate - s/p stage 1 TURP - substantial improvement without resolution of symptoms Allergies Allergy/AdvReac Type Severity Reaction Status Date / Time No Known Drug Allergies Allergy Verified 12/20/19 05:37 Home Medications Home Medications Medication Instructions Recorded Confirmed Type atorvastatin 10 mg PO QAM 03/21/19 12/20/19 History cyanocobalamin (vitamin B-12) 1,000 mcg PO QPM 03/21/19 12/20/19 History [Vitamin B-12] lkxc-jtorzc-xjpfakos-D3-C-Mn 2 tab PO QAM 03/21/19 12/20/19 History lisinopril 2.5 mg PO QAM 03/21/19 12/20/19 History metformin 1,000 mg PO BID 03/21/19 12/20/19 History aspirin 81 mg tablet,delayed 81 mg PO QAM 07/15/19 12/20/19 History release tadalafil 5 mg PO QPM 12/03/19 12/20/19 History Past Med/Surg History Medical History Benign prostatic hyperplasia with urinary obstruction Diabetes (Chronic) History of kidney stones Hyperlipidemia Hypertension Morbid obesity Surgical History History of open reduction and internal fixation (ORIF) procedure LEFT ARM; THE ORIF D/T ANOTHER FX Hx of cholecystectomy Hx of colonoscopy Hx of cystoscopy Hx of eye surgery FOR RETINAL PUCKER REPAIR Hx of lithotripsy Nausea and vomiting after administration of anesthetic agent Family History Father Family history of diabetes mellitus Hypertension Cardiac disorder Brother Family history of diabetes mellitus Sister Family history of diabetes mellitus Mother Family history of diabetes mellitus Breast cancer Cardiac disorder Social History Preferred Language: Ugandan Communication Ability: Effective Speaker Mounter Required: No Beliefs That Will Affect Care: None marital status: Current Living Situation: Spouse current occupational status: employed Feels Safe at Home: Yes Safety Concerns: Feels Safe At This Time Smoking Status: Former smoker Tobacco Type: smokeless tobacco ; Do You Dip or Chew Tobacco: No ; Smoking End Date: > 20YR ; Second Hand Exposure: No ; Hx Alcohol Use: Yes Alcohol type: beer Hx Substance Use: No Physical Exam Constitutional: well developed and well nourished Neck: neck nontender Respiratory: normal respiratory effort; no respiratory distress and does not use accessory muscles Cardiovascular: Rate/Rhythm: regular rate Vessels: radial pulses present Extremities: no edema Gastrointestinal (Abdomen): Inspection/Auscultation: abdomen normal to inspection Percussion/Palpation: abdomen soft; abdomen nontender and no guarding Musculoskeletal: Head/Neck/Chest: normocephalic and head atraumatic Extremities: extremities normal to inspection Skin: no rashes and no lesions Trauma: no evidence of skin trauma Neurologic: awake; not obtunded Speech / Cognition: normal speech Motor/Sensory: no tremor Psychiatric: Orientation: alert and oriented x 3 Genitourinary: no CVA tenderness Lymphatic: no lymphadenopathy Results & Data Vital Signs (Past 12 Hours) Vital Signs Temp Pulse Resp BP Pulse Ox 12/20/19 05:40 36.7 C 62 18 156/70 H 94
[2019-12-20] MEDS ORDERED: BELLADONNA/OPIUM SUPP 60 MG SUPP PR ONE (08:03)
[2019-12-20] MEDS ORDERED: BELLADONNA/OPIUM SUPP 60 MG SUPP PR PRN ×2 (08:05→08:28)
[2019-12-20] MEDS ORDERED: ACETAMINOPHEN 325 MG TAB PO PRN (08:50)
[2019-12-20] MEDS ORDERED: ONDANSETRON INJ 2 MG/ML 2 ML VIAL IV PRN (08:50)
[2019-12-20] MEDS ORDERED: ACETAMINOPHEN W/CODEINE #3 1 TAB PO PRN ×2 (08:50)
--- NOTE | 2019-12-20 09:17 | Anesthesiology Progress Note ---
Date of Service December 20, 2019 Anesthesia Post Procedure Vital Signs Vital Signs: Temp Pulse Pulse Resp BP Pulse Ox 12/20/19 09:15 36.6 C 58 L 12 147/75 H 93 12/20/19 09:05 59 L 16 135/73 94 12/20/19 08:55 59 L 15 150/70 H 100 12/20/19 08:45 62 15 148/73 H 99 12/20/19 08:39 36.6 C 69 14 155/78 H 96 12/20/19 05:40 36.7 C 62 18 156/70 H 94 Transfer of Care Handoff Completed per policy Notes Mental Status: alert / awake / arousable and participated in evaluation Patient Amnestic to Procedure: Yes Nausea / Vomiting: adequately controlled Pain: adequately controlled Airway Patency, RR, SpO2: stable & adequate BP & HR: stable & adequate Hydration State: stable & adequate Anesthetic Complications: no major complications apparent
[2019-12-20] MEDS ORDERED: METFORMIN HCL 500 MG TAB PO SCH (10:02)
[2019-12-20] MEDS: LACTATED RINGER'S 1,000 ML IV SCH ×2 (10:04→21:29)
--- NOTE | 2019-12-20 10:19 | Operative Report ---
PG Post Operative Report Pre & Post Diagnosis Operation Date: 12/20/19 07:15 Pre-Op Diagnosis: Benign Prostatic Hyperplasia Post-Op Diagnosis: Benign Prostatic Hyperplasia I identified the patient and participated in the time-out.: Yes Procedure Operation Date: 12/20/19 07:15 Actual Procedures p Transurethral Resection of Prostate(Not Applicable) - Steven Hernandez MD Surgeon Gee Hernandez MD Edger Machine Setter none Estimated Blood Loss 5 Findings Consistent with Post-Op Diagnosis Specimens None Description of Procedure The patient was identified in the preopertive holding area, appropriate informed consents were reviewed and completed and the patient was transferred to the operative suite. Upon arrival, appropriate antibiotics and anesthesia were administered and the patient was placed in dorsal lithotomy position and prepped and draped in sterile fashion. To begin the case a 27 [place]ian resectoscope with 30 degree lens and visual obturator was inserted per urethra. There were no strictures. His prostate was very large with a notable abnormality protruding from the left and right lateral lobes. Of note, he is status post prior TURP and the abnormality appreciated is the expected regrowth and residual obstruction after surgery of this nature. Inspection of the bladder revealed healthy-appearing mucosa with ureteral orifices identified in orthotopic position. Following my inspection I exchanged the visual obturator for resecting element using a button electrode. I began to smooth the left and right lateral lobes as well as resect all residual and redundant tissue. After approximately 45 minutes of resection the prostatic fossa was widely patent and hemostasis was excellent. I felt that we were suitable time to conclude the case and I left his bladder full and withdrew the scope. I placed a 22 Mauritanian Harvey catheter without difficulty and the case was concluded. He was extubated and taken to the PACU in stable condition. There were no complications. I attest to the content of the Intraoperative Record and any orders documented therein. Any exceptions are noted below.
[2019-12-20] MEDS ORDERED: PHARMACY GLYCEMIC MGMT CONSULT PRN (10:50)
[2019-12-20] MEDS ORDERED: NovoLIN-N (NPH) PER UNIT CHARGE SQ ONE (11:15)
--- NOTE | 2019-12-20 11:15 | Pharmacy Report ---
Glycemic Control Consultation - Date of Service December 20, 2019 - Scope Scope: Glycemic Pharmacist consulted for glycemic control and to write orders per [facility] inpatient glycemic control protocol - Objective Weight: 130.9 kg Accuchecks BSG (last 24hrs): 12/20/19 12/20/19 05:41 08:45 POC Glucose 140 H 155 H - Recent Pertinent Medications Outpatient Anti-diabetic Regimen: * Metformin 1 g po BID * A1c outdated, but 7.0 % on 03/23/19 Risk Factors for Insulin Resistance: * Steroids: dexamethasone 4 mg IV overriden * Recent Surgery: POD 0 s/p TURP * Diet: T2DM - Assessment & Plan Assessment & Plan: ASSESSMENT: * 64 yo M with T2DM on one oral agent as an outpatient with good historical HbA1c admitted for TURP * Will give one-time dose of long-acting insulin 2nd steroids administered in OR. May or may not require repeat dose x1 tomorrow AM * Will initiate Novolog at weight-based moderate stress estimate PLAN FOR INPATIENT GLYCEMIC CONTROL: * Holding outpatient oral diabetes medications * Basal insulin * NPH 30 units SC x1 * Bolus insulin * NovoLog per scale ACHS with one overnight check * Goal Range: Low 110 mg/dL - High 140 mg/dL * Correction Factor: 20 mg/dL/unit * Nutritional / Prandial insulin per carb ratio of 1 unit per 6 grams CHO consumed * Please note that the plan above was derived based on current level of insulin resistance and hospital stress. These recommendations are appropriate for inpatient admission only. Plan of care upon discharge will need to be reassessed to avoid potential outpatient hypo/hyperglycemia. Thank you.
[2019-12-20] MEDS: ATORVASTATIN 10 MG TAB PO SCH (11:46)
[2019-12-20] MEDS: INSULIN ASPART 100 UNITS/ML 3 ML PEN SC SCH ×3 (13:20→21:27)
[2019-12-20] MEDS: CEFAZOLIN 2000MG 2,000 MG/15 ML SYR IV SCH ×2 (16:01→23:42)
[2019-12-21] MEDS ORDERED: INSULIN ASPART 100 UNITS/ML 3 ML PEN SC ONE (02:00)
[2019-12-21 06:36] LABS: Basophils # (auto) 0.01 K/uL (0-0.2); Basophils % (auto) 0.1 %; Eosinophils # (auto) 0.01 K/uL (0-0.5); Eosinophils % (auto) 0.1 %; Hemoglobin 14.5 g/dL (14.0-18.0); Immature Granulocytes # (auto) 0.04 K/uL (0.00-0.02); Immature Granulocytes % (auto) 0.3 %; Lymphocytes # (auto) 1.69 K/uL (1.2-3.4); Lymphocytes % (auto) 13.3 %; Mean Corpuscular Hemoglobin 32.5 pg (25-34); Mean Corpuscular Hgb Conc 34.5 g/dL (32-36); Mean Corpuscular Volume 94.2 fL (80-100); Monocytes # (auto) 1.01 K/uL (0.11-0.59); Monocytes % (auto) 7.9 %; Neutrophils # (auto) 9.99 K/uL (1.4-6.5); Neutrophils % (auto) 78.3 %; Platelet Count 161 K/uL (130-400); RDW Coefficient of Variation 12.7 % (11.5-14.5); RDW Standard Deviation 43.5 fL (36.4-46.3); Red Blood Count 4.46 M/uL (4.7-6.1); White Blood Count 12.75 K/uL (4.8-10.8)
[2019-12-21 07:09] LABS: BUN Creatinine Ratio 22.4 (10-20); Calcium 8.8 mg/dl (8.5-10.1); Creatinine Clr Calc Pharmacy 92.8 ml/min; Est GFR (African American) 85.3; Est GFR (Non-African American) 73.6; Potassium 4.1 mmol/L (3.5-5.1)
--- NOTE | 2019-12-21 07:43 | Urology Progress Note ---
Date of Service December 21, 2019 Assessment & Plan (1) BPH loc w/o ur obs/LUTS: remove catheter today d/c home Subjective No issues overnight ambulating tolerating diet no pain urine clearing Physical Exam Physical Exam: urine still blood tinged, but improved from immediately after surgery Results & Data Vital Signs (Past 12 Hours) Vital Signs Temp Pulse Resp BP Pulse Ox 12/21/19 01:59 36.5 C 63 16 133/67 95 12/20/19 23:25 37.0 C 68 18 125/67 94 PG Care Time/CCT Total # of Minutes Spent Total Time Spent with Patient: Total time spent is greater than 50% in coordination of care (as documented) at patient's floor/unit and/or counseling patient: Coding Level of Care Code None Diagnoses BPH loc w/o ur obs/LUTS N40.0
--- NOTE | 2019-12-21 07:46 | Discharge Summary ---
Date of Service December 21, 2019 Admission HPI Per Admitting Provider highly symptomatic bph here for tUrp Principal Diagnosis BPH Discharge Data Allergies Allergy/AdvReac Type Severity Reaction Status Date / Time No Known Drug Allergies Allergy Verified 12/20/19 05:37 Procedures Performed Operation Date: 12/20/19 07:15 Actual Procedures p Transurethral Resection of Prostate(Not Applicable) - Steven Hernandez MD Hospital Course (1) BPH loc w/o ur obs/LUTS: admitted for TURP - uneventful surgery and recovery d/c'ed home on the morning of POD#1 Total Time Total Time Spent Total Time Spent (In Minutes): 30 Total Time Includes: Examination of the Patient and Discharge Planning Discharge Plan Discharge Items Patient Disposition: Home - Self-Care Reason For Visit: Benign Prostatic Hyperplasia Discharge Diagnosis: BPH Activity: Resume your previous activity Lifting: Gradually increase as tolerated Bathing: No limitations Sexual Activity: When tolerated Exercise/Sports: Gradually increase as tolerated Driving/Machine Use: No limitations Non-emergency contact: Urologist Call non-emergency contact if: you have any medication questions, your pain is concerning for you, you have a fever and your temperature is above 101.5 Follow-up/Referrals: Corey Gill [Primary Care Provider] - Diet: Carb Consistent or DM2 Addtl Attending Provider Instructions: Please take all medications as prescribed and keep follow-ups as scheduled. Please call our office at [phone] with any questions, concerns or need to reschedule appointments for any reason. We are happy to assist you. While catheter is in place, please wash with warm soapy water and a fresh washcloth twice a day with mild bar soap (Dove, Dial, etc.). Your nursing visit appointment to have your catheter removed should already be made, if you have any question regarding this, please call our office. Complete antibiotics as prescribed, if indicated. It is okay to take AZO (available over the counter) as needed for a few days to relieve burning with urination. This may cause your urine or feces to turn an orangish-color. This is expected. The only exception is if you have been prescribed Pyridium (phenazopyridine), this is the same medication and should not take AZO be taken in addition to prescription version. Please do not drive, drink alcohol or operate machinery while taking prescription pain medication. We recommend continuing a stool softener (i.e. Colace) to prevent constipation/straining for at least two weeks after your procedure. Some blood is to be expected in your urine as you heal, you may even see recurrences of blood in your urine for up to 4-6 months after your procedure. Drink plenty of fluids, avoid sexual or strenuous exercise and do not lift >25 pounds until your follow-up. Call [facility] [place] [facility] at [phone] promptly if you experience: Fever of 101F or greater Pain thats not controlled with medicine Trouble urinating or inability to urinate Dark, bloody urine for more than 12 hours Pending Studies at Discharge: No Stand-Alone Forms: [facility] (powering [employer]), Smoking Cessation Medications and DC Order Prescriptions: Continued aspirin [Adult Low Dose Aspirin] 81 mg tablet,delayed release (DR/EC) 81 mg PO QAM RF: 0 metformin 500 mg tablet 1,000 mg PO BID RF: 0 atorvastatin 10 mg tablet 10 mg PO QAM RF: 0 cyanocobalamin (vitamin B-12) [Vitamin B-12] 1,000 mcg Tablet 1,000 mcg PO QPM RF: 0 lisinopril 2.5 mg tablet 2.5 mg PO QAM RF: 0 euuv-vowozz-xgxckvmi-D3-C-Mn 500-400-667 mg-mg-unit Capsule 2 tab PO QAM RF: 0 tadalafil 5 mg tablet 5 mg PO QPM RF: 0 Discharge Orders: Discharge Order (Routine); Ordered 12/21/19 Ordered By: Steven Hernandez Admission Data Admit Date/Time: 12/20/19 08:50 Attending Provider: Steven Hernandez Admit Provider: Steven Hernandez Primary Care Provider: Corey Gill Coding Level of Care Code D/C Day Management <30 mins Diagnoses BPH loc w/o ur obs/LUTS N40.0
--- NOTE | 2019-12-21 08:00 | Anesthesiology Progress Note ---
Date of Service December 21, 2019 Anesthesia Post Procedure Vital Signs Vital Signs: Temp Pulse Pulse Resp BP Pulse Ox 12/21/19 07:48 36.6 C 65 17 149/69 H 95 12/21/19 01:59 36.5 C 63 16 133/67 95 12/20/19 23:25 37.0 C 68 18 125/67 94 12/20/19 19:22 36.8 C 77 18 127/63 93 12/20/19 15:15 36.6 C 73 18 118/64 94 12/20/19 12:40 36.8 C 73 16 121/66 94 12/20/19 11:43 36.8 C 57 L 16 127/73 94 12/20/19 10:50 62 16 151/75 H 94 12/20/19 10:15 58 L 16 145/77 H 93 12/20/19 09:40 36.8 C 68 16 143/74 H 96 12/20/19 09:15 36.6 C 58 L 12 147/75 H 93 12/20/19 09:05 59 L 16 135/73 94 12/20/19 08:55 59 L 15 150/70 H 100 12/20/19 08:45 62 15 148/73 H 99 12/20/19 08:39 36.6 C 69 14 155/78 H 96 Notes Mental Status: alert / awake / arousable and participated in evaluation Nausea / Vomiting: adequately controlled Pain: adequately controlled Airway Patency, RR, SpO2: stable & adequate BP & HR: stable & adequate Hydration State: stable & adequate
[2019-12-21] MEDS ORDERED: METFORMIN HCL 500 MG TAB PO SCH (09:00)
[2019-12-21] MEDS: ATORVASTATIN 10 MG TAB PO SCH (09:31)
[2019-12-21] MEDS: INSULIN ASPART 100 UNITS/ML 3 ML PEN SC SCH (09:32)
== END 2019-12-21 11:41 | disposition home or self-care (01) ==
LOC: 3W 04:45 → ASU 04:45